=== PATIENT | male | born 1990 | race Caucasian/White ===

== ENCOUNTER 2019-07-29 02:07 | Emergency (ER) | payer SELFPAY ==
--- NOTE | 2019-07-29 02:15 | ED_ITS ---
Entered by Leticia Vora, acting as scribe for HPI - General Adult General: Chief complaint: Fever Stated complaint: GENERAL PAIN/ SOB/ FEVER Time Seen by Provider: 07/29/19 02:13 Source: EMS Mode of arrival: ambulatory Limitations: no limitations History of Present Illness: HPI narrative: Alonso is a nice 29-year-old male who comes in complaining of subjective fever and bone pain. He states the symptoms began earlier tonight. He denies being exposed to anyone else with similar symptoms or with possible exposure of Covid-19. He denies headache, sore throat, cough, shortness of breath, nausea or vomiting, abdominal pain, diarrhea, skin rash or other complaint. He states he just feels like he has a fever and hurts all over. MD complaint: fever and chills Onset (ago): hour(s) Location: head Radiation: non-radiation Severity: mild Pain Consistency: constant Relieving factors: none Exacerbating factors: none Associated symptoms: Reports fevers/chills; Deny chest pain, confusion, dyspnea, headache(s), nausea, rash, palpitations, syncope or vomiting Treatments prior to arrival: none Review of Systems Const: Reports: fever, chills and body aches Eyes: Denies: change in vision or blurry vision ENMT: Denies: throat pain, painful swallowing, hoarseness, ear pain, ear discharge, Change in hearing or nasal discharge Card: Denies: chest pain, palpitations, irregular heart rhythm, syncope, pre- syncope, shortness of breath on exertion or shortness of breath when lying down Resp: Denies: shortness of breath, productive cough, non-productive cough, wheezing, coughing up blood or chest congestion GI: Denies: abdominal pain, nausea, vomiting, vomiting blood, coffee grounds in vomit, diarrhea, constipation, cramping, blood in stool or black tarry stool : Denies: flank pain, difficulty urinating, painful urination, urinary frequency, urinary urgency, decreased urine ouput, urinary incontinence or blood in urine Musc: Denies: neck pain, back pain, extremity pain, extremity swelling, joint pain, joint swelling, joint warmth or joint stiffness Skin/Breast: Denies: rash, skin tenderness or yellow skin Neuro: Denies: headache, numbness in extremities, weakness in extremities, changes in sensation, lack of coordination, difficulty walking, dizziness, vertigo or confusion Endo: Denies: excessive thirst, tired all the time, cold intolerance, excessive sweating, flushing or hot flashes Marco/Lymph: Denies: easy bruising, easy bleeding, petechiae or enlarged lymph nodes All/Imm: Denies: hives, throat swelling, tongue swelling, facial swelling or acute wheezing PFSH ED PFSH: Medical History (Updated 07/29/19 @ 05:32 by Sariah Alba) No pertinent past medical history Social History Smoking and tobacco status: current every day smoker Physical Exam Const: COMMON NORMALS: no apparent distress, oriented x3, no limitations, healthy appearing and well nourished EXAM LIMITATIONS: no altered mental status GENERAL APPEARANCE: cooperative, well kempt and well developed ORIENTATION/CONSCIOUSNESS: Yes awake HENMT: COMMON NORMALS: normocephalic, head/scalp atraumatic, hearing grossly normal bilaterally, external ears normal, EAC's normal, external nose normal and moist oral mucous membranes HEAD & SCALP: normal to inspection, normocephalic and atraumatic FACE & SINUS: normal facial exam and face symmetric NOSE: external nose normal and nares normal EXTERNAL EAR: Yes external ears normal EXTERNAL AUDITORY CANAL: EAC's normal MOUTH: oral and palatal mucosa normal and tongue normal Eye: COMMON NORMALS: PERRL, EOMs intact bilaterally, conjunctivae normal and no scleral icterus GENERAL EYE: normal appearance of both eyes and normal light reflex CONJUNCTIVA: Yes conjunctivae normal SCLERA: sclerae normal CORNEA: Yes corneas normal PUPIL: Yes PERRL DIRECT OPHTHALMOSCOPY: Yes normal light reflex Neck/C-Spine: COMMON NORMALS: full ROM, no lymphadenopathy, supple, no meningeal signs and no JVD GENERAL: Yes normal visual inspection and Yes trachea midline CERVICAL SPINE: Yes cervical ROM normal Chest: COMMONS NORMALS: inspection of chest normal and palpation of chest normal Resp: COMMON NORMALS: normal respiratory effort, no retractions, no use of accessory muscles and clear to auscultation bilaterally EFFORT & INSPECTION: Yes able to speak in complete sentences AUSCULTATION: clear to auscultation bilaterally Cardio: COMMON NORMALS: no JVD, regular rate, regular rhythm, S1 normal heart sound, S2 normal heart sound, no gallops, no clicks, no murmurs and no rub JUGULAR VENOUS DISTENTION: no JVD RATE: regular rate RHYTHM: regular rhythm HEART SOUNDS: S1 normal and S2 normal GI: COMMON NORMALS: soft to palpation, non-tender, no hepatosplenomegaly and no masses INSPECTION: Yes normal to inspection PALPATION: Yes soft and Yes no hepatosplenomegaly : COMMON NORMALS: Yes no CVA tenderness BLADDER/KIDNEY EXAM: Yes no CVA tenderness Back/Pelvis: COMMON NORMALS: no CVA tenderness, thoracic and lumbar spine normal to inspection, no thoracic nor lumbar tenderness and thoraco-lumbar ROM normal Extremity: COMMON NORMALS: normal to inspection, full ROM, normal capillary refill, no joint enlargement, no clubbing, cyanosis or edema and no calf tenderness Neuro: COMMON NORMALS: oriented x3, CN's II-XII intact bilaterally, moves all extremities, no focal motor deficits and no sensory deficits noted MENINGEAL SIGNS: Yes no meningeal signs Psych: COMMON NORMALS: mental status grossly normal, thought process normal, cooperative, affect normal, speech normal and activity/motor behavior normal APPEARANCE: Yes well kempt SPEECH: Yes normal speech THOUGHT PROCESS: normal thought process Skin: COMMON NORMALS: no rashes or lesions noted, skin turgor normal, no jaundice, no petechiae and no mottling GENERAL SKIN EXAM: no rashes or lesions noted and turgor normal Course Vital Signs: Vital signs: Vital Signs Temperature 98.0 F 07/29/19 02:40 Pulse Rate 111 H 07/29/19 02:40 Respiratory Rate 18 07/29/19 02:40 Blood Pressure 150/98 07/29/19 02:40 Pulse Oximetry 99 07/29/19 02:40 MDM - General Adult MDM Narrative: Medical decision making narrative: Alonso is a nice 29-year-old male who comes in complaining of generalized body aches and subjective fever. Objectively he has had no fever here and he denies any antipyretics prior to coming in. I do not see any evidence of track gutierrez or injection drug use. I hear no heart murmurs on exam. There is no splinter hemorrhages, Janeway lesions or Osler's nodes. Patient vomited here but that was when he had a IV placed which he states he has had this reaction before. He is denied any nausea or vomiting, abdominal pain or diarrhea at home. I imaged his abdomen with ultrasound and CT scan when he had an elevated lipase but he still adamant he has no abdominal pain he has had no vomiting or diarrhea at home. He has no history of Crohn's disease or inflammatory bowel disease. He denies any blood in his stools or black tarry stools. On repeat exam he has no evidence of abdominal pain. Clinically at this time I believe a viral syndrome is still most likely but I will cover him for inflammatory bowel disease with Cipro and Flagyl and he agrees to return here in 24 hours for repeat laboratory and physical examination to evaluate for progressing pancreatitis. Neither his CT scan nor his ultrasound showed any evidence of cholecystitis or pancreatitis. The patient understands that his symptoms still do not have a definitive cause and he will need to return for reevaluation. He denies any questions or concerns and agrees with this treatment plan. Lab Data: Attestation: I reviewed the patient's lab results. Labs: Lab Results 07/29/19 07/29/19 07/29/19 Range/Units 02:20 02:20 02:27 WBC 16.6 H (4.0-10.0) 10^3/ uL RBC 4.70 (4.1-5.3) 10^6/u L Hgb 13.9 (11.7-16.6) g/dL Hct 42.6 (42.0-52.0) % MCV 90.6 (80-94) fL MCH 29.6 (28.0-34.0) pg MCHC 32.6 (30.0-36.0) g/dL RDW 13.0 (12.1-15.1) % Plt Count 181 (130-400) 10^3/c mm MPV 12.0 H (7.4-10.4) fL Neut % (Auto) 90.9 % Lymph % (Auto) 4.5 % [place] % (Auto) 3.9 % Eos % (Auto) 0.2 % Baso % (Auto) 0.2 % Neut # (Auto) 15.1 H (1.8-7.7) 10^3/u L Lymph # (Auto) 0.7 L (0.8-4.8) 10^3/u L [place] # (Auto) 0.6 (0.2-0.9) 10^3/u L Eos # (Auto) 0.0 (0.0-0.8) 10^3/u L Baso # (Auto) 0.0 (0.0-0.1) 10^3/u L Nucleated RBC % (a uto) 0 % Nucleated RBCs # 0.0 /100WBC Sodium (136-145) mmol/L Potassium (3.5-5.1) mmol/L Chloride (98-107) mmol/L Carbon Dioxide (22-29) mmol/L Anion Gap (5-19) BUN (6-20) mg/dL Creatinine (0.7-1.2) mg/dL GFR Calculation (90-130) mL/min Glucose (65-115) mg/dL Calculated Osmolal ity (285-295) mOsm/k g Lactic Acid (0.5-2.2) mmol/L Calcium (8.5-10.5) mg/dL Magnesium (1.7-2.3) mg/dL Total Bilirubin (0.15-1.2) mg/dL AST (0-40) U/L ALT (0-41) U/L Alkaline Phosphata se (40-130) IU/L Total Protein (6.6-8.7) g/dL Albumin (3.5-5.2) g/dL Globulin (1.3-4.6) g/dL Lipase (13-60) U/L Urine Color (Yellow) Urine Appearance (CLEAR) Urine pH (5-7) Ur Specific Gravit y (1.005-1.030) Urine Protein (Negative) Urine Glucose (UA) (Normal) Urine Ketones (Negative) Urine Blood (Negative) Urine Nitrate (Negative) Urine Bilirubin (NEGATIVE) Urine Urobilinogen (Negative) mg/dL Ur Leukocyte Martha ase (Negative) Urine RBC (0-2) /hpf Urine WBC (0-5) /hpf Ur Squamous Epith Cells (0-5) Urine Bacteria (NONE) Urine Opiates Scre en (Negative) ng/mL Ur Barbiturates Sc reen (Negative) ng/mL Ur Phencyclidine S crn (Negative) ng/mL Ur Amphetamines Sc reen (Negative) ng/mL U Benzodiazepines Scrn (Negative) ng/mL Urine Cocaine Scre en (Negative) ng/mL U Marijuana (THC) Screen (Negative) ng/mL Ethyl Alcohol (0-10) mg/dL Influenza Type A A g Negative (Negative) POC Influenza B Ag Negative (Negative) Group A Strep Rapi d Negative (Negative) 07/29/19 07/29/19 07/29/19 Range/Units 02:27 02:27 02:27 WBC (4.0-10.0) 10^3/ uL RBC (4.1-5.3) 10^6/u L Hgb (11.7-16.6) g/dL Hct (42.0-52.0) % MCV (80-94) fL MCH (28.0-34.0) pg MCHC (30.0-36.0) g/dL RDW (12.1-15.1) % Plt Count (130-400) 10^3/c mm MPV (7.4-10.4) fL Neut % (Auto) % Lymph % (Auto) % [place] % (Auto) % Eos % (Auto) % Baso % (Auto) % Neut # (Auto) (1.8-7.7) 10^3/u L Lymph # (Auto) (0.8-4.8) 10^3/u L [place] # (Auto) (0.2-0.9) 10^3/u L Eos # (Auto) (0.0-0.8) 10^3/u L Baso # (Auto) (0.0-0.1) 10^3/u L Nucleated RBC % (a uto) % Nucleated RBCs # /100WBC Sodium 136 (136-145) mmol/L Potassium 4.1 (3.5-5.1) mmol/L Chloride 100 (98-107) mmol/L Carbon Dioxide 24 (22-29) mmol/L Anion Gap 16.1 (5-19) BUN 22 H (6-20) mg/dL Creatinine 1.0 (0.7-1.2) mg/dL GFR Calculation 87.7 L (90-130) mL/min Glucose 123 H (65-115) mg/dL Calculated Osmolal ity 280 L (285-295) mOsm/k g Lactic Acid 1.4 (0.5-2.2) mmol/L Calcium 9.8 (8.5-10.5) mg/dL Magnesium 2.2 (1.7-2.3) mg/dL Total Bilirubin 0.4 (0.15-1.2) mg/dL AST 18 (0-40) U/L ALT 24 (0-41) U/L Alkaline Phosphata se 71 (40-130) IU/L Total Protein 7.5 (6.6-8.7) g/dL Albumin 4.6 (3.5-5.2) g/dL Globulin 2.9 (1.3-4.6) g/dL Lipase 441 H (13-60) U/L Urine Color (Yellow) Urine Appearance (CLEAR) Urine pH (5-7) Ur Specific Gravit y (1.005-1.030) Urine Protein (Negative) Urine Glucose (UA) (Normal) Urine Ketones (Negative) Urine Blood (Negative) Urine Nitrate (Negative) Urine Bilirubin (NEGATIVE) Urine Urobilinogen (Negative) mg/dL Ur Leukocyte Martha ase (Negative) Urine RBC (0-2) /hpf Urine WBC (0-5) /hpf Ur Squamous Epith Cells (0-5) Urine Bacteria (NONE) Urine Opiates Scre en (Negative) ng/mL Ur Barbiturates Sc reen (Negative) ng/mL Ur Phencyclidine S crn (Negative) ng/mL Ur Amphetamines Sc reen (Negative) ng/mL U Benzodiazepines Scrn (Negative) ng/mL Urine Cocaine Scre en (Negative) ng/mL U Marijuana (THC) Screen (Negative) ng/mL Ethyl Alcohol < 10 (0-10) mg/dL Influenza Type A A g (Negative) POC Influenza B Ag (Negative) Group A Strep Rapi d (Negative) 07/29/19 07/29/19 Range/Units 03:15 03:15 WBC (4.0-10.0) 10^3/ uL RBC (4.1-5.3) 10^6/u L Hgb (11.7-16.6) g/dL Hct (42.0-52.0) % MCV (80-94) fL MCH (28.0-34.0) pg MCHC (30.0-36.0) g/dL RDW (12.1-15.1) % Plt Count (130-400) 10^3/c mm MPV (7.4-10.4) fL Neut % (Auto) % Lymph % (Auto) % [place] % (Auto) % Eos % (Auto) % Baso % (Auto) % Neut # (Auto) (1.8-7.7) 10^3/u L Lymph # (Auto) (0.8-4.8) 10^3/u L [place] # (Auto) (0.2-0.9) 10^3/u L Eos # (Auto) (0.0-0.8) 10^3/u L Baso # (Auto) (0.0-0.1) 10^3/u L Nucleated RBC % (a uto) % Nucleated RBCs # /100WBC Sodium (136-145) mmol/L Potassium (3.5-5.1) mmol/L Chloride (98-107) mmol/L Carbon Dioxide (22-29) mmol/L Anion Gap (5-19) BUN (6-20) mg/dL Creatinine (0.7-1.2) mg/dL GFR Calculation (90-130) mL/min Glucose (65-115) mg/dL Calculated Osmolal ity (285-295) mOsm/k g Lactic Acid (0.5-2.2) mmol/L Calcium (8.5-10.5) mg/dL Magnesium (1.7-2.3) mg/dL Total Bilirubin (0.15-1.2) mg/dL AST (0-40) U/L ALT (0-41) U/L Alkaline Phosphata se (40-130) IU/L Total Protein (6.6-8.7) g/dL Albumin (3.5-5.2) g/dL Globulin (1.3-4.6) g/dL Lipase (13-60) U/L Urine Color Yellow (Yellow) Urine Appearance Clear (CLEAR) Urine pH 7 (5-7) Ur Specific Gravit y 1.005 (1.005-1.030) Urine Protein Neg (Negative) Urine Glucose (UA) Norm (Normal) Urine Ketones Negative (Negative) Urine Blood Neg (Negative) Urine Nitrate Negative (Negative) Urine Bilirubin Neg (NEGATIVE) Urine Urobilinogen Norm (Negative) mg/dL Ur Leukocyte Martha ase Negative (Negative) Urine RBC Rare (0-2) /hpf Urine WBC Rare (0-5) /hpf Ur Squamous Epith Cells Rare (0-5) Urine Bacteria Trace (NONE) Urine Opiates Scre en Negative (Negative) ng/mL Ur Barbiturates Sc reen Negative (Negative) ng/mL Ur Phencyclidine S crn Negative (Negative) ng/mL Ur Amphetamines Sc reen Negative (Negative) ng/mL U Benzodiazepines Scrn Negative (Negative) ng/mL Urine Cocaine Scre en Negative (Negative) ng/mL U Marijuana (THC) Screen Positive H (Negative) ng/mL Ethyl Alcohol (0-10) mg/dL Influenza Type A A g (Negative) POC Influenza B Ag (Negative) Group A Strep Rapi d (Negative) Imaging Data^: CT Abd/Pel: Radiologist's impression: [address] [address] [address] Scan Report Signed Patient: Alonso Duque Unit #: [id number] : 1990 Age/Sex: 29 / M ADM Date: 07/29/19 Loc: ER Room/Bed: Attending Dr: Ordering Provider/Ordering MD: Sariah Alba DO Date of Service: 07/29/19 Procedure(s): CT abdomen pelvis w con* [id number] Accession Number(s): [id number] Report Number: [id number] PROCEDURE INFORMATION: Exam: CT Abdomen And Pelvis With Contrast Exam date and time: 07/29/2019 3:55 AM Age: 29 years old Clinical indication: Abnormal findings; Abnormal lab test; Elevated lipase; Additional info: Abdominal pain TECHNIQUE: Imaging protocol: Computed tomography of the abdomen and pelvis with intravenous contrast. Total DLP: 683.02 mGy-cm Radiation optimization: All CT scans at this facility use at least one of these dose optimization techniques: automated exposure control; mA and/or kV adjustment per patient size (includes targeted exams where dose is matched to clinical indication); or iterative reconstruction. Contrast material: OMNI 300; Contrast volume: 95 ml; Contrast route: IV; COMPARISON: No relevant prior studies available. FINDINGS: Lungs: The lung bases are clear. Liver: Unremarkable. Gallbladder and bile ducts: No visible gallstones or other definite gallbladder abnormality by CT. Ultrasound could be more sensitive for detecting gallstones, if clinically needed. No biliary tree dilation. Pancreas: Essentially unremarkable pancreas by CT, no surrounding inflammatory changes or fluid. Normal appearance of the pancreas on CT does not entirely exclude the diagnosis of acute pancreatitis. Please correlate with clinical and laboratory evaluation. Spleen: Unremarkable. Adrenals: Unremarkable. Kidneys and ureters: Unremarkable. Stomach and bowel: Suspect mild mucosal/wall thickening involving the terminal ileum and some distal ileal small bowel loops. While this might possibly be a transient appearance on CT, this appearance is suspicious for some type of inflammatory bowel disease,(especially Crohn's disease), or other inflammatory bowel process/enteritis. Please correlate clinically. Possibly some minimal adjacent mesenteric edema/inflammation. There are no CT findings to strongly suggest diverticulitis. Appendix: The appendix is visualized and appears normal. Intraperitoneal space: No free air, ascites, or significant bowel distention. Vasculature: No evidence for abdominal aortic aneurysm. Lymph nodes: Several borderline to mildly prominent inguinal lymph nodes bilaterally. Several borderline prominent retroperitoneal/periaortic lymph nodes, a nonspecific appearance. Bladder: Unremarkable as visualized. Reproductive: Essentially unremarkable for age. Bones/joints: No significant acute finding. Soft tissues: No significant acute finding. CT/CT abdomen pelvis w con* [id number] IMPRESSION: 1. Suspected mucosal/wall thickening involving the terminal/distal ileum, see above discussion. 2. No free air or significant bowel distention. 3. Essentially unremarkable pancreas by CT, see above. 4. Normal appendix. 5. Other findings discussed above. Radiation Dose CTDIVOL = (mGy): DLP = 683.02 (mGy-cm) Dictated By: Kaleb Vanessa MD Signed By: Kaleb Vanessa MD Signed Date/Time: 07/29/19429 DD/ 7 US: Radiologist's impression: Ultrasound abdomen, technologist interpretation - gallbladder normal. No other acute findings. Discharge Plan Discharge Patient Disposition: Home, Self-Care Clinical Impression: Viral infection, Enteritis Acute pancreatitis Qualifiers: Pancreatitis type: unspecified pancreatitis type Acute pancreatitis complication: unspecified Qualified Code(s): K85.90 - Acute pancreatitis without necrosis or infection, unspecified Condition: Stable Prescriptions: New Zofran 4 mg tablet 4 mg PO Q6H PRN (Reason: nausea and vomiting) Qty: 20 RF: 0 Flagyl 500 mg tablet 500 mg PO TID 10 Days Qty: 30 RF: 0 Cipro 500 mg tablet 500 mg PO BID Qty: 20 RF: 0 Referrals: Binu Olvera MD [Physician] - 1-3 days Discharge Diet: Advance as tolerated and Clear Liquid Discharge Activity: Increase activity as tolerated Patient Instructions: Pancreatitis (ED), Crohn Disease (ED), Gastroenteritis (ED), Acute Nausea and Vomiting (ED), Viral Syndrome (ED) Activity Restrictions/Additional Instructions: Please return to the ER immediately for any of the signs or symptoms listed on your discharge instruction sheets, worsening/changing of your symptoms, you are not getting better as quickly as expected, or for ANY other cause or concerns. Be certain to take your antibiotics and nausea medicines as I have prescribed. A clear cause for your symptoms is not definite at this time so it is imperative that you return in 24 hours for recheck. Follow a clear liquid diet but take the medicines I have prescribed and Tylenol and Motrin as needed for pain or fever. Return sooner for any worsening of your symptoms, new symptoms or for any other cause for concern. Coding Level of Care Code ED Cereal Miller for Chg Fwd Exam Comprehensive The documentation recorded by the Diony rousseau Bridget Annette, accurately reflects the service I personally performed and the decisions made by Anjali cabrera Eli N Jul 29, 2019 02:07
--- NOTE | 2019-07-29 02:16 | XR_ITS ---
WS: [id number] XR chest 1V portable [id number] REASON FOR EXAM: cough FINDINGS: The heart and mediastinal interfaces normal. The lung baker are well aerated. No pneumonia, pleural effusion, pulmonary edema, pneumothorax, or m ass effect. The hilum and apices are normal XR/XR chest 1V portable [id number] IMPRESSION: Negative chest for acute pathology.
[2019-07-29 02:35] LABS: Rapid Strep A Test Negative (Negative)
[2019-07-29 02:36] LABS: Basophils % 0.2 %; Eosinophils % 0.2 %; Hematocrit 42.6 % (42.0-52.0); Hemoglobin 13.9 g/dL (11.7-16.6); Lymphocytes # 0.7 10^3/uL (0.8-4.8); Lymphocytes % 4.5 %; Mean Corpuscular HGB Conc 32.6 g/dL (30.0-36.0); Mean Corpuscular Hemoglobin 29.6 pg (28.0-34.0); Mean Corpuscular Volume 90.6 fL (80-94); Monocytes # 0.6 10^3/uL (0.2-0.9); Monocytes % 3.9 %; Neutrophils # 15.1 10^3/uL (1.8-7.7); Neutrophils % 90.9 %; Nucleated Red Blood Cells % 0 %; Platelet Count 181 10^3/cmm (130-400); White Blood Count 16.6 10^3/uL (4.0-10.0)
[2019-07-29 02:40] VITALS: BP 150/98; PULSE 111; RESP 18; TEMP 36.7; O2SAT 99; BMI 25.0
[2019-07-29 02:49] LABS: Influenza A by IFA Negative (Negative); Influenza B by IFA Negative (Negative)
[2019-07-29 02:53] LABS: Alanine Aminotransferase 24 U/L (0-41); Albumin Level 4.6 g/dL (3.5-5.2); Alkaline Phosphatase 71 IU/L (40-130); Anion Gap 16.1 (5-19); Aspartate Amino Transferase 18 U/L (0-40); Blood Urea Nitrogen 22 mg/dL (6-20); Calcium 9.8 mg/dL (8.5-10.5); Carbon Dioxide 24 mmol/L (22-29); Chloride 100 mmol/L (98-107); Globulin 2.9 g/dL (1.3-4.6); Glomerular Filtration Rate 87.7 mL/min (90-130); Glucose 123 mg/dL (65-115); Magnesium 2.2 mg/dL (1.7-2.3); Osmolality Calculated 280 mOsm/kg (285-295); Potassium 4.1 mmol/L (3.5-5.1); Sodium 136 mmol/L (136-145); Total Bilirubin 0.4 mg/dL (0.15-1.2); Total Protein 7.5 g/dL (6.6-8.7)
[2019-07-29 02:54] LABS: Lactic Sepsis W/Reflex 1.4 mmol/L (0.5-2.2)
[2019-07-29] MEDS: sodium chloride 0.9% 1,000 ML 999 ML IV (03:09)
[2019-07-29 03:11] LABS: Lipase 441 U/L (13-60)
[2019-07-29 03:20] VITALS: BP 132/82; PULSE 98; RESP 16; O2SAT 98
--- NOTE | 2019-07-29 03:35 | CTR_ITS ---
PROCEDURE INFORMATION: Exam: CT Abdomen And Pelvis With Contrast Exam date and time: 07/29/2019 3:55 AM Age: 29 years old Clinical indication: Abnormal findings; Abnormal lab test; Elevated lipase; Additional info: Abdominal pain TECHNIQUE: Imaging protocol: Computed tomography of the abdomen and pelvis with intravenous contrast. Total DLP: 683.02 mGy-cm Radiation optimization: All CT scans at this facility use at least one of these dose optimization techniques: automated exposure control; mA and/or kV adjustment per patient size (includes targeted exams where dose is matched to clinical indication); or iterative reconstruction. Contrast material: OMNI 300; Contrast volume: 95 ml; Contrast route: IV; COMPARISON: No relevant prior studies available. FINDINGS: Lungs: The lung bases are clear. Liver: Unremarkable. Gallbladder and bile ducts: No visible gallstones or other definite gallbladder abnormality by CT. Ultrasound could be more sensitive for detecting gallstones, if clinically needed. No biliary tree dilation. Pancreas: Essentially unremarkable pancreas by CT, no surrounding inflammatory changes or fluid. Normal appearance of the pancreas on CT does not entirely exclude the diagnosis of acute pancreatitis. Please correlate with clinical and laboratory evaluation. Spleen: Unremarkable. Adrenals: Unremarkable. Kidneys and ureters: Unremarkable. Stomach and bowel: Suspect mild mucosal/wall thickening involving the terminal ileum and some distal ileal small bowel loops. While this might possibly be a transient appearance on CT, this appearance is suspicious for some type of inflammatory bowel disease,(especially Crohn's disease), or other inflammatory bowel process/enteritis. Please correlate clinically. Possibly some minimal adjacent mesenteric edema/inflammation. There are no CT findings to strongly suggest diverticulitis. Appendix: The appendix is visualized and appears normal. Intraperitoneal space: No free air, ascites, or significant bowel distention. Vasculature: No evidence for abdominal aortic aneurysm. Lymph nodes: Several borderline to mildly prominent inguinal lymph nodes bilaterally. Several borderline prominent retroperitoneal/periaortic lymph nodes, a nonspecific appearance. Bladder: Unremarkable as visualized. Reproductive: Essentially unremarkable for age. Bones/joints: No significant acute finding. Soft tissues: No significant acute finding. CT/CT abdomen pelvis w con* [id number] IMPRESSION: 1. Suspected mucosal/wall thickening involving the terminal/distal ileum, see above discussion. 2. No free air or significant bowel distention. 3. Essentially unremarkable pancreas by CT, see above. 4. Normal appendix. 5. Other findings discussed above. Radiation Dose CTDIVOL = (mGy): DLP = 683.02 (mGy-cm)
[2019-07-29 03:45] LABS: Amphetamines Screen Urine Negative (Negative); Barbiturates Screen Urine Negative (Negative); Benzodiazepines Screen Urine Negative (Negative); Cocaine Screen Urine Negative (Negative); Opiate Screen Urine Negative (Negative); PCP Screen Urine Negative (Negative); THC Screen Urine Positive (Negative)
[2019-07-29] MEDS: sodium chloride 0.9% 1,000 ML 100 ML IV (03:46)
[2019-07-29] MEDS: ondansetron 2 mg/ML SDV 2 mL 4 MG IVP (03:46)
[2019-07-29 03:49] LABS: Urine Appearance Clear (CLEAR); Urine Color Yellow (Yellow); pH Urine 7 (5-7)
[2019-07-29 03:50] LABS: Bacteria Urine TRACE; Bilirubin Urine Neg (NEGATIVE); Blood Urine Neg (Negative); Glucose Urine UA Norm (Normal); Ketones Urine Negative (Negative); Leukocyte Esterase Urine Negative (Negative); Nitrate Urine Negative (Negative); Protein Urine Neg (Negative); RBC Urine RARE /hpf (0-2); Specific Gravity, Urine 1.005 (1.005-1.030); Squamous Epithelial Cell Urine RARE (0-5); Urobilinogen Urine Norm (Negative); WBC Urine RARE /hpf (0-5)
[2019-07-29] MEDS: iohexol 300 mg/mL 100 mL Btl IV (03:58)
--- NOTE | 2019-07-29 04:14 | US_ITS ---
WS: [id number] ABDOMINAL ULTRASOUND REASON FOR EXAM: Abdominal Pain TECHNIQUE: Grayscale and Doppler ultrasound examination of the abdomen. FINDINGS: Pancreas: Appears within normal limits. Abdominal aorta and IVC: Normal limits Liver: Liver measures 12.9 cm in length. The pattern of portal circulation normal. Gallbladder: Gallbladder wall thickness measures 0.2 cm. No stones. Common bile duct measured 0.31 cm . Left kidney: Left kidney measures 10.0 cm x 5.1 cm x 4.9 cm. . No hydronephrosis no stones Right kidney: Right kidney measures 10.2 cm x 5.1 cm x 5.0 cm. No hydronephrosis no stones. US/US abdomen complete* [id number] IMPRESSION: Normal abdominal survey by ultrasound.
[2019-07-29 05:17] LABS: Alcohol Level < 10 mg/dL (0-10)
[2019-07-29 05:20] VITALS: BP 132/77; PULSE 102; RESP 20; O2SAT 98
[2019-07-29] MEDS: metroNIDAZOLE 500 MG Tablet PO (05:32)
[2019-07-29] MEDS: ciprofloxacin 500 mg Tablet PO (05:32)
[2019-07-29 06:46] VITALS: BP 124/70; PULSE 102; RESP 18; O2SAT 96
== END 2019-07-29 06:49 | disposition home or self-care (01) ==
PROVIDERS: Emergency Provider Emergency Medicine
DX: B34.9 Viral infection, unspecified (principal); K52.9 Noninfective gastroenteritis and colitis, unspecified; F17.200 Nicotine dependence, unspecified, uncomplicated
CPT/HCPCS: 12345; 71045; 74177; 76700; 80053; 80306; 80307; 81001; 83605; 83690; 83735; 85025; 87040; 87081; 87804; 87880; 96361; 96374; 99283; 99284; A9270; J2405; J7030; Q9967

== ENCOUNTER 2022-10-16 20:06 | Emergency (ER) | payer SELFPAY ==
[2022-10-16 20:20] VITALS: BP 133/80; PULSE 86; RESP 17; TEMP 36.4; O2SAT 94
--- NOTE | 2022-10-16 20:55 | XRR_ITS ---
PROCEDURE INFORMATION: Exam: XR Chest Exam date and time: 10/16/2022 9:18 PM Age: 32 years old Clinical indication: Cough TECHNIQUE: Imaging protocol: Radiologic exam of the chest. Views: 1 view. COMPARISON: CR XR chest 1V portable [id number] 07/29/2019 3:10 AM FINDINGS: Lungs: The lung bases are suboptimally assessed due to technique however the upper lungs are clear of focal consolidation. Pleural spaces: Unremarkable. No pleural effusion. No pneumothorax. Heart/Mediastinum: Cardiac silhouette appears normal in size. No obvious vascular congestion. Diaphragm: Slightly elevated right hemidiaphragm, unchanged. Bones/joints: No acute osseous findings. Other findings: Single view was submitted. XR/XR chest 1V portable [id number] IMPRESSION: No obvious acute consolidation. Suboptimal lung base assessment. Followup including lateral view may be obtained if clinically indicated.
--- NOTE | 2022-10-16 21:15 | W.ED.URI ---
HPI - URI/Sore Throat General: Chief Complaint: Upper Respiratory Infection Stated Complaint: Sore Throat\Coughing Up Blood Time Seen by Provider: 10/16/22 20:24 History of Present Illness: Patient is a 32-year-old male who comes to the ED with sore throat. Patient says symptoms started approximately 2 to 3 weeks ago. He says his sore throat was more mild and yesterday his sore throat got more painful. Throat pain is located mostly on the right side and he says the pain radiates up into his right ear. He also endorses having some right ear pain. He has had some mild nasal drainage and congestion as well. Today he said he was smoking a cigarette and he started coughing and just a small amount of blood came out. This episode only occurred once today. He has not had any other episodes of bloody cough. 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 Associated symptoms: Reports nasal congestion; Deny abdominal pain, chills, chest pain, diarrhea, fever(s), headache(s), nausea or vomiting Review of Systems Const: Denies: fever(s), chills or fatigue Eyes: Denies: change in vision or eye discomfort ENMT: Reports: throat pain, odynophagia, nasal discharge and nasal congestion Card: Denies: chest pain, palpitations, edema, swelling of feet/ankles, dyspnea on exertion or orthopnea Resp: Denies: dyspnea, productive cough or non-productive cough GI: Denies: abdominal pain, nausea, vomiting, diarrhea, constipation or hematochezia : Denies: flank pain, difficulty urinating, dysuria or hematuria Musc: Denies: neck pain, back pain or extremity swelling Skin/Breast: Denies: rash or new lesions Neuro: Denies: headache(s), numbness in extremities or weakness in extremities [facility] ED PFSH: Medical History (Updated 10/16/22 @ 21:57 by GERMANIA Coughlin) No pertinent past medical history Surgical History (Updated 10/17/22 @ 00:27 by GERMANIA Coughlin) No pertinent past surgical history Social History Smoking and tobacco status: current every day smoker Physical Exam Const: COMMON NORMALS: no acute distress, patient oriented x3, healthy appearing and alert HENMT: COMMON NORMALS: normocephalic HEAD & SCALP: normocephalic MOUTH: Normal oral and palatal mucosa present THROAT: posterior oropharynx normal and uvula midline Neck/C-Spine: COMMON NORMALS: supple GENERAL: Yes normal visual inspection Resp: COMMON NORMALS: normal respiratory effort, No retractions, No use of accessory muscles and clear to auscultation bilaterally AUSCULTATION: clear to auscultation bilaterally Cardio: COMMON NORMALS: regular rate, regular rhythm, S1 normal heart sound present, S2 normal heart sound present, No gallops present (Cardio), No clicks present (Cardio), No murmurs present (Cardio) and Peripheral pulses 2+ throughout RATE: regular rate RHYTHM: regular rhythm HEART SOUNDS: S1 normal heart sound present and S2 normal heart sound present PERIPHERAL PULSES: Peripheral pulses 2+ throughout GI: COMMON NORMALS: Normal to inspection, nondistended, normoactive bowel sounds present, Soft to palpation, non-tender and no masses PALPATION: Yes Soft to palpation : COMMON NORMALS: Yes no CVA tenderness BLADDER/KIDNEY EXAM: Yes no CVA tenderness Back/Pelvis: COMMON NORMALS: no CVA tenderness Extremity: COMMON NORMALS: normal to inspection Neuro: COMMON NORMALS: patient oriented x3 SENSORIUM/ORIENTATION: Yes alert GAIT: Yes Normal gait present Skin: GENERAL SKIN EXAM: dry skin Course Vital Signs: Vital signs: Vital Signs Temperature 97.6 F 10/16/22 20:20 Pulse Rate 78 10/16/22 22:04 Respiratory Rate 16 10/16/22 22:04 Blood Pressure 133/80 10/16/22 20:20 Pulse Oximetry 99 10/16/22 22:04 Oxygen Delivery Me thod Room Air 10/16/22 20:20 MDM - URI/Sore Throat Medical Decision Making Patient is a 32-year-old male who comes to the ED with sore throat. Patient says symptoms started approximately 2 to 3 weeks ago. He says his sore throat was more mild and yesterday his sore throat got more painful. Throat pain is located mostly on the right side and he says the pain radiates up into his right ear. He also endorses having some right ear pain. He has had some mild nasal drainage and congestion as well. Today he said he was smoking a cigarette and he started coughing and just a small amount of blood came out. This episode only occurred once today. He has not had any other episodes of bloody cough. 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 Vitals are stable. Patient appears nontoxic in no acute distress or pain. He has some posterior oropharynx erythema but rest of exam is benign. Chest x-ray shows no acute findings. Strep was negative. Given patient's close contact with somebody who had strep patient was diagnosed with pharyngitis and was discharged home with a prescription for an antibiotic. Told to follow-up with PCP in the next week for reevaluation. Return to ED precautions given. Patient understood and agreed with plan. Lab Data I reviewed the patient's lab results. Radiology Impressions Chest X-Ray 10/16/22 20:55 IMPRESSION: No obvious acute consolidation. Suboptimal lung base assessment. Followup including lateral view may be obtained if clinically indicated. Laboratory Results Group A Strep Rapid Negative (Negative) 10/16/22 20:36 Discharge Plan Discharge Patient Disposition: Home Clinical Impression: Pharyngitis Qualifiers: Pharyngitis/tonsillitis etiology: unspecified etiology Qualified Code(s): J02.9 - Acute pharyngitis, unspecified Condition: Stable Prescriptions: New Augmentin 500-125 mg tablet 1 tab PO BID 10 Days Qty: 20 0RF No Action Zofran 4 mg tablet 4 mg PO Q6H PRN (Reason: nausea and vomiting) Qty: 20 0RF Cipro 500 mg tablet 500 mg PO BID Qty: 20 0RF Discharge Orders: Discharge ED (Routine); Ordered 10/16/22 Ordered By: Scott Corona Discharge Diet: Regular Discharge Activity: Increase activity as tolerated Patient Instructions: Pharyngitis (ED) Activity Restrictions/Additional Instructions: Follow-up with medical provider as directed. Take medications as prescribed. Return to the ER or your medical provider if condition worsens. Please read and understand discharge instructions. Thank you for choosing [facility] for your healthcare needs today. Please realize this is an emergency room and that we are providing you with a medical screening exam and this may not be complete and all inclusive of all the testing and or work up that you may need to determine your ailment or severity of your illness. It is very important that you follow up as instructed or that you return to the Emergency Department should you have concerns or if your condition changes or worsens in any way. 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
[2022-10-16 21:25] LABS: Rapid Strep A Test Negative (Negative)
[2022-10-16] MEDS: amoxicillin-clav 500-125 mg Tablet 1 TAB PO (22:03)
[2022-10-16 22:04] VITALS: PULSE 78; RESP 16; O2SAT 99
--- NOTE | 2022-10-20 13:30 | DCPLANNER ---
manager of administration called patient due to no primary care physician - no answer at this time.
== END 2022-10-16 22:04 | disposition home or self-care (01) ==
PROVIDERS: Emergency Provider Physician Assistant
DX: J02.9 Acute pharyngitis, unspecified (principal); F17.210 Nicotine dependence, cigarettes, uncomplicated
CPT/HCPCS: 71045; 87081; 87880; 99283

== ENCOUNTER 2023-09-22 17:26 | Inpatient (IN) | payer BC, SELFPAY ==
[2023-09-22] VITALS (8 sets, daily range): BP systolic 102–132; BP diastolic 61–91; PULSE 82–105; RESP 16–18; TEMP 36.6–36.9; O2SAT 92–95
--- NOTE | 2023-09-22 17:55 | CTR_ITS ---
PROCEDURE INFORMATION: Exam: CT Abdomen And Pelvis With Contrast Exam date and time: 09/22/2023 6:12 PM Age: 33 years old Clinical indication: Abdominal pain; Localized; Patient HX: History--lower abd pain with squezzing of testicles feeling ; Additional info: Abd pain, right side TECHNIQUE: Imaging protocol: Computed tomography of the abdomen and pelvis with contrast. Radiation optimization: All CT scans at this facility use at least one of these dose optimization techniques: automated exposure control; mA and/or kV adjustment per patient size (includes targeted exams where dose is matched to clinical indication); or iterative reconstruction. Contrast material: OMNI 350; Contrast volume: 100 ml; Contrast route: INTRAVENOUS (IV); COMPARISON: CT abdomen pelvis w con* [id number] 07/29/2019 3:55 AM RADIATION DOSE METRICS: Total DLP (mGy-cm): 1123 FINDINGS: Lungs: The lung bases are clear. Heart: Heart size is within normal limits. There is no pericardial effusion or pericardial thickening. Liver: The liver is normal. No hepatic masses are identified. Gallbladder and bile ducts: The gallbladder is normal. There is no ductal dilatation. Pancreas: The pancreas is normal. Spleen: The spleen is normal. Adrenal glands: The adrenal glands are normal. Kidneys and ureters: There is normal enhancement of the kidneys. No renal calcifications are identified. There is no hydronephrosis. Stomach and bowel: Moderate colonic diverticula involving the sigmoid and descending colon. Moderate thickening of the mid sigmoid colon with [id number] adjacent inflammatory changes and multiple extraluminal foci of gas contained within the mesentery. No free gas in the upper abdomen. Trace adjacent fluid without drainable fluid collection. No other areas of inflammatory change. No fluid collections. No other areas of bowel wall thickening. No evidence of large or small bowel obstruction. Appendix: A normal appendix is identified. Intraperitoneal space: See Stomach and bowel finding. Vasculature: The aorta is normal in course and caliber. No significant atherosclerotic calcifications are present. Incidental note is made of a retroaortic left renal vein. Lymph nodes: There are no enlarged retroperitoneal or mesenteric lymph nodes. Urinary bladder: The bladder is decompressed and collapsed. No abnormality identified. Reproductive: The prostate is grossly unremarkable. Bones/joints: Several nonaggressive sclerotic foci within the pelvis, stable compared to 2019, likely bone islands. No acute osseous abnormalities are seen. Soft tissues: There is a moderate periumbilical hernia containing only fat. There is a small left inguinal hernia containing only fat. The soft tissues are otherwise within normal limits. CT/CT abdomen pelvis w con* [id number] IMPRESSION: 1. Acute diverticulitis of the mid sigmoid colon with extraluminal mesenteric gas consistent with contained perforation. No free intraperitoneal gas, no drainable fluid collection. 2. Other nonemergent findings above.
--- NOTE | 2023-09-22 17:56 | ED_ITS ---
Documented by User: GUILLERMO Melara 09/22/23 19:51 HPI - Abdominal Pain 2 General: Chief Complaint: Abdominal Pain Stated Complaint: abd pain, testicle pain Time Seen by Provider: 09/22/23 17:48 History of Present Illness: 33-year-old male patient comes in today for complaints of right mid to lower quadrant abdominal pain starting about 1:00 this afternoon with nausea and vomiting. Patient appears nontoxic. Patient denies any chronic medical problems except for hip ankle and back pain. Patient does endorse use of tobacco, and marijuana. Patient denies methamphetamines or alcohol. Patient's had no surgeries. Patient works at [employer]. Review of Systems 2 General: Reports: 10 or more systems reviewed and unremarkable except in HPI and below GI: Reports: abdominal pain PFSH ED 2 PFSH: Medical History (Updated 09/22/23 @ 18:47 by GUILLERMO Melara) No pertinent past medical history Surgical History (Updated 10/17/22 @ 00:27 by GERMANIA Coughlin) No pertinent past surgical history Social History Smoking and tobacco/nicotine status: current every day tobacco/nicotine user Physical Exam 2 Const: COMMON NORMALS: alert HENMT: COMMON NORMALS: normocephalic HEAD & SCALP: normocephalic Neck/C-Spine: COMMON NORMALS: full ROM Resp: COMMON NORMALS: normal respiratory effort and clear to auscultation bilaterally AUSCULTATION: clear to auscultation bilaterally Cardio: COMMON NORMALS: regular rate RATE: regular rate GI: AUSCULTATION: Yes Hypoactive bowel sounds present PALPATION: Yes Tenderness to palpation present (GI) Details: RLQ, No Guarding due to palpation present (GI) and Yes Rebound tenderness present : COMMON NORMALS: Yes no CVA tenderness BLADDER/KIDNEY EXAM: Yes no CVA tenderness Back/Pelvis: COMMON NORMALS: no CVA tenderness Extremity: COMMON NORMALS: normal to inspection Neuro: SENSORIUM/ORIENTATION: Yes alert Skin: COMMON NORMALS: turgor normal GENERAL SKIN EXAM: turgor normal Course 2 Vital Signs: Vital signs: Vital Signs Temperature 98.5 F 09/22/23 17:33 Pulse Rate 103 H 09/22/23 20:14 Respiratory Rate 16 09/22/23 17:33 Blood Pressure 132/91 09/22/23 20:14 Pulse Oximetry 94 09/22/23 20:14 Oxygen Delivery Me thod Room Air 09/22/23 17:33 MDM - Abdominal Pain Medical Decision Making 33-year-old male patient comes in today for complaints of right lower quadrant abdominal pain with nausea and vomiting starting about 1:00 this afternoon. Patient appears mildly unwell but nontoxic. Abdomen soft with rebound tenderness and right lower quadrant abdominal tenderness. Vital signs are normal except for some mild elevation in pulse at 104. Differential diagnosis includes but not limited to gastroenteritis, constipation, gallbladder disease, pancreatitis, appendicitis, renal calculi. 1844, notified by Dr. Amado, radiologist, patient was noted to have diverticulitis with a mid sigmoid colon with extraluminal mesenteric gas suggesting a contained perforation without signs of intraperitoneal gas or abscess. Discussed this with Dr. Parham who recommended patient be admitted. Patient was given a 4.5 g dose of Zosyn. Patient was started on IV fluids. Discussed with patient who agreed to plan for admission. 1934, consulted Dr. Rob, surgeon on-call, he agreed to consult with hospitalist as needed for possible surgery recommending Zosyn and keeping patient n.p.o. Dr. Negron accepted patient for hospitalist services. Lab Data 09/22/23 17:51 09/22/23 17:51 Labs/Radiology: Radiology Impressions Abdomen/Pelvis CT 09/22/23 17:55 IMPRESSION: 1. Acute diverticulitis of the mid sigmoid colon with extraluminal mesenteric gas consistent with contained perforation. No free intraperitoneal gas, no drainable fluid collection. 2. Other nonemergent findings above. ADDENDUM: 09/22/23 1836 ADDENDUM: THIS REPORT CONTAINS FINDINGS THAT MAY BE CRITICAL TO PATIENT CARE. The findings were verbally communicated via telephone conference with GINNY MARAVILLA at 6:34 PM CDT on 09/22/2023. The findings were acknowledged and understood. Laboratory Results WBC 11.14 10^3/uL (3.29-11.43) 09/22/23 17:51 RBC 5.08 10^6/uL (3.85-5.65) 09/22/23 17:51 Hgb 14.90 g/dL (11.27-16.99) 09/22/23 17:51 Hct 45.0 % (37-53) 09/22/23 17:51 MCV 88.6 fl (82-101) 09/22/23 17:51 MCH 29.3 pg (27-33) 09/22/23 17:51 MCHC 33.1 g/dL (30-55) 09/22/23 17:51 RDW 13.3 % (12.1-15.1) 09/22/23 17:51 Plt Count 190 10^3/cmm (157-399) 09/22/23 17:51 MPV 12.7 fL (7.4-10.4) H 09/22/23 17:51 Neut % (Auto) 79.5 % 09/22/23 17:51 Lymph % (Auto) 12.8 % 09/22/23 17:51 Fisher % (Auto) 5.8 % 09/22/23 17:51 Eos % (Auto) 1.1 % 09/22/23 17:51 Baso % (Auto) 0.5 % 09/22/23 17:51 Neut # (Auto) 8.85 10^3/uL (1.8-7.7) H 09/22/23 17:51 Lymph # (Auto) 1.4 10^3/uL (0.8-4.8) 09/22/23 17:51 Fisher # (Auto) 0.7 10^3/uL (0.2-0.9) 09/22/23 17:51 Eos # (Auto) 0.1 10^3/uL (0.0-0.8) 09/22/23 17:51 Baso # (Auto) 0.1 10^3/uL (0.0-0.1) 09/22/23 17:51 Nucleated RBC % (auto) 0 % 09/22/23 17:51 Nucleated RBCs # 0.0 /100WBC 09/22/23 17:51 Sodium 141 mmol/L (136-145) 09/22/23 17:51 Potassium 4.2 mmol/L (3.5-5.1) 09/22/23 17:51 Chloride 105 mmol/L (98-107) 09/22/23 17:51 Carbon Dioxide 24 mmol/L (22-29) 09/22/23 17:51 Anion Gap 16.2 (5-19) 09/22/23 17:51 BUN 15 mg/dL (6-20) 09/22/23 17:51 Creatinine 1.1 mg/dL (0.7-1.2) 09/22/23 17:51 GFR Calculation 76.6 mL/min (90-130) L 09/22/23 17:51 Glucose 116 mg/dL (65-115) H 09/22/23 17:51 Calculated Osmolality 294 mOsm/kg (285-295) 09/22/23 17:51 Calcium 9.3 mg/dL (8.5-10.5) 09/22/23 17:51 Total Bilirubin 0.7 mg/dL (0.15-1.2) 09/22/23 17:51 AST 79 U/L (0-40) H 09/22/23 17:51 ALT 153 U/L (0-41) H 09/22/23 17:51 Alkaline Phosphatase 121 U/L (40-130) 09/22/23 17:51 Total Protein 8.2 g/dL (6.6-8.7) 09/22/23 17:51 Albumin 4.5 g/dL (3.5-5.2) 09/22/23 17:51 Globulin 3.7 g/dL (1.3-4.6) 09/22/23 17:51 Lipase 88 U/L (13-60) H 09/22/23 17:51 Urine Color Yellow (Yellow) 09/22/23 18:26 Urine Appearance Clear (CLEAR) 09/22/23 18:26 Urine pH 7 (5-7) 09/22/23 18:26 Ur Specific [place] 1.005 (1.005-1.030) 09/22/23 18:26 Urine Protein Neg (Negative) 09/22/23 18:26 Urine Glucose (UA) Norm (Normal) 09/22/23 18:26 Urine Ketones Negative (Negative) 09/22/23 18:26 Urine Blood Neg (Negative) 09/22/23 18:26 Urine Nitrate Negative (Negative) 09/22/23 18:26 Urine Bilirubin Neg (Negative) 09/22/23 18:26 Urine Urobilinogen Norm mg/dL (Negative) 09/22/23 18:26 Ur Leukocyte Esterase Negative (Negative) 09/22/23 18:26 All radiology interpretation(s) finalized by discharge Discharge Plan Discharge Patient Disposition: Admitted As Inpatient Admit Provider: Bj Negron Clinical Impression: Diverticulitis of colon with perforation Condition: Stable Coding Level of Care Code ED Administrative Assistant Data Entry for [employer]upali Fwcarmelo Documented by User: Tim Parham MD 09/22/23 20:26 HPI - Abdominal Pain 2 General: Chief Complaint: Abdominal Pain Stated Complaint: abd pain, testicle pain Time Seen by Provider: 09/22/23 17:48 PFSH ED 2 PFSH: Medical History (Updated 09/22/23 @ 18:47 by GUILLERMO Melara) No pertinent past medical history Surgical History (Updated 10/17/22 @ 00:27 by GERMANIA Coughlin) No pertinent past surgical history Social History Smoking and tobacco/nicotine status: current every day tobacco/nicotine user Course 2 Vital Signs: Vital signs: Vital Signs Temperature 98.5 F 09/22/23 17:33 Pulse Rate 103 H 09/22/23 20:14 Respiratory Rate 16 09/22/23 17:33 Blood Pressure 132/91 09/22/23 20:14 Pulse Oximetry 94 09/22/23 20:14 Oxygen Delivery Me thod Room Air 09/22/23 17:33 MDM - Abdominal Pain Medical Decision Making 33-year-old male patient comes in today for complaints of right lower quadrant abdominal pain with nausea and vomiting starting about 1:00 this afternoon. Patient appears mildly unwell but nontoxic. Abdomen soft with rebound tenderness and right lower quadrant abdominal tenderness. Vital signs are normal except for some mild elevation in pulse at 104. Differential diagnosis includes but not limited to gastroenteritis, constipation, gallbladder disease, pancreatitis, appendicitis, renal calculi. 1845, notified by Dr. Amado, radiologist, patient was noted to have diverticulitis with a mid sigmoid colon with extraluminal mesenteric gas suggesting a contained perforation without signs of intraperitoneal gas or abscess. Discussed this with Dr. Parham who recommended patient be admitted. Patient was given a 4.5 g dose of Zosyn. Patient was started on IV fluids. Discussed with patient who agreed to plan for admission. 1934, consulted Dr. Rob, surgeon on-call, he agreed to consult with hospitalist as needed for possible surgery recommending Zosyn and keeping patient n.p.o. Dr. Negron accepted patient for hospitalist services. Discussed case with midlevel agree with history and plan Medical Records I reviewed the patient's medical records. Lab Data I reviewed the patient's lab results. 09/22/23 17:51 09/22/23 17:51 Labs/Radiology: Radiology Impressions Abdomen/Pelvis CT 09/22/23 17:55 IMPRESSION: 1. Acute diverticulitis of the mid sigmoid colon with extraluminal mesenteric gas consistent with contained perforation. No free intraperitoneal gas, no drainable fluid collection. 2. Other nonemergent findings above. ADDENDUM: 09/22/23 4806 ADDENDUM: THIS REPORT CONTAINS FINDINGS THAT MAY BE CRITICAL TO PATIENT CARE. The findings were verbally communicated via telephone conference with GINNY MARAVILLA at 6:34 PM CDT on 09/22/2023. The findings were acknowledged and understood. Laboratory Results WBC 11.14 10^3/uL (3.29-11.43) 09/22/23 17:51 RBC 5.08 10^6/uL (3.85-5.65) 09/22/23 17:51 Hgb 14.90 g/dL (11.27-16.99) 09/22/23 17:51 Hct 45.0 % (37-53) 09/22/23 17:51 MCV 88.6 fl (82-101) 09/22/23 17:51 MCH 29.3 pg (27-33) 09/22/23 17:51 MCHC 33.1 g/dL (30-55) 09/22/23 17:51 RDW 13.3 % (12.1-15.1) 09/22/23 17:51 Plt Count 190 10^3/cmm (157-399) 09/22/23 17:51 MPV 12.7 fL (7.4-10.4) H 09/22/23 17:51 Neut % (Auto) 79.5 % 09/22/23 17:51 Lymph % (Auto) 12.8 % 09/22/23 17:51 Fisher % (Auto) 5.8 % 09/22/23 17:51 Eos % (Auto) 1.1 % 09/22/23 17:51 Baso % (Auto) 0.5 % 09/22/23 17:51 Neut # (Auto) 8.85 10^3/uL (1.8-7.7) H 09/22/23 17:51 Lymph # (Auto) 1.4 10^3/uL (0.8-4.8) 09/22/23 17:51 Fisher # (Auto) 0.7 10^3/uL (0.2-0.9) 09/22/23 17:51 Eos # (Auto) 0.1 10^3/uL (0.0-0.8) 09/22/23 17:51 Baso # (Auto) 0.1 10^3/uL (0.0-0.1) 09/22/23 17:51 Nucleated RBC % (auto) 0 % 09/22/23 17:51 Nucleated RBCs # 0.0 /100WBC 09/22/23 17:51 Sodium 141 mmol/L (136-145) 09/22/23 17:51 Potassium 4.2 mmol/L (3.5-5.1) 09/22/23 17:51 Chloride 105 mmol/L (98-107) 09/22/23 17:51 Carbon Dioxide 24 mmol/L (22-29) 09/22/23 17:51 Anion Gap 16.2 (5-19) 09/22/23 17:51 BUN 15 mg/dL (6-20) 09/22/23 17:51 Creatinine 1.1 mg/dL (0.7-1.2) 09/22/23 17:51 GFR Calculation 76.6 mL/min (90-130) L 09/22/23 17:51 Glucose 116 mg/dL (65-115) H 09/22/23 17:51 Calculated Osmolality 294 mOsm/kg (285-295) 09/22/23 17:51 Calcium 9.3 mg/dL (8.5-10.5) 09/22/23 17:51 Total Bilirubin 0.7 mg/dL (0.15-1.2) 09/22/23 17:51 AST 79 U/L (0-40) H 09/22/23 17:51 ALT 153 U/L (0-41) H 09/22/23 17:51 Alkaline Phosphatase 121 U/L (40-130) 09/22/23 17:51 Total Protein 8.2 g/dL (6.6-8.7) 09/22/23 17:51 Albumin 4.5 g/dL (3.5-5.2) 09/22/23 17:51 Globulin 3.7 g/dL (1.3-4.6) 09/22/23 17:51 Lipase 88 U/L (13-60) H 09/22/23 17:51 Urine Color Yellow (Yellow) 09/22/23 18:26 Urine Appearance Clear (CLEAR) 09/22/23 18:26 Urine pH 7 (5-7) 09/22/23 18:26 Ur Specific [place] 1.005 (1.005-1.030) 09/22/23 18:26 Urine Protein Neg (Negative) 09/22/23 18:26 Urine Glucose (UA) Norm (Normal) 09/22/23 18:26 Urine Ketones Negative (Negative) 09/22/23 18:26 Urine Blood Neg (Negative) 09/22/23 18:26 Urine Nitrate Negative (Negative) 09/22/23 18:26 Urine Bilirubin Neg (Negative) 09/22/23 18:26 Urine Urobilinogen Norm mg/dL (Negative) 09/22/23 18:26 Ur Leukocyte Esterase Negative (Negative) 09/22/23 18:26 Discharge Plan Discharge Patient Disposition: Admitted As Inpatient Admit Provider: Bj Negron Clinical Impression: Diverticulitis of colon with perforation Condition: Stable Coding Level of Care Code ED Administrative Assistant Data Entry for [employer]upali High
[2023-09-22 18:13] LABS: Basophils # 0.1 10^3/uL (0.0-0.1); Basophils % 0.5 %; Eosinophils # 0.1 10^3/uL (0.0-0.8); Eosinophils % 1.1 %; Lymphocytes # 1.4 10^3/uL (0.8-4.8); Lymphocytes % 12.8 %; Mean Corpuscular HGB Conc 33.1 g/dL (30-55); Mean Corpuscular Hemoglobin 29.3 pg (27-33); Mean Corpuscular Volume 88.6 fl (82-101); Mean Platelet Volume 12.7 fL (7.4-10.4); Monocytes # 0.7 10^3/uL (0.2-0.9); Monocytes % 5.8 %; Neutrophils # 8.85 10^3/uL (1.8-7.7); Neutrophils % 79.5 %; Nucleated Red Blood Cells % 0 %; Platelet Count 190 10^3/cmm (157-399); Red Blood Count 5.08 10^6/uL (3.85-5.65); Red Cell Distribution Width 13.3 % (12.1-15.1); White Blood Count 11.14 10^3/uL (3.29-11.43)
[2023-09-22] MEDS: iohexol 350 mg/mL 500 mL Btl (per mL) IV (18:15)
[2023-09-22] MEDS: ondansetron 2 mg/ML SDV 2 mL 4 MG IVP (18:31)
[2023-09-22] MEDS: lactated ringers 1,000 ML 999 ML IV (18:31)
[2023-09-22 18:36] LABS: Alanine Aminotransferase 153 U/L (0-41); Albumin Level 4.5 g/dL (3.5-5.2); Alkaline Phosphatase 121 U/L (40-130); Anion Gap 16.2 (5-19); Aspartate Amino Transferase 79 U/L (0-40); Blood Urea Nitrogen 15 mg/dL (6-20); Calcium 9.3 mg/dL (8.5-10.5); Carbon Dioxide 24 mmol/L (22-29); Chloride 105 mmol/L (98-107); Creatinine Clr Calc Pharmacy 113.7883; Globulin 3.7 g/dL (1.3-4.6); Glomerular Filtration Rate 76.6 mL/min (90-130); Glucose 116 mg/dL (65-115); Lipase 88 U/L (13-60); Osmolality Calculated 294 mOsm/kg (285-295); Potassium 4.2 mmol/L (3.5-5.1); Sodium 141 mmol/L (136-145); Total Bilirubin 0.7 mg/dL (0.15-1.2); Total Protein 8.2 g/dL (6.6-8.7)
[2023-09-22 18:45] LABS: Add Urine Microscopic? NO; Charge for UA Resulting for Rev
[2023-09-22] MEDS: piperacillin-tazobactam 4.5 GM in sodium chloride 0.9% (plus) 50 ML IV (18:56)
[2023-09-22 19:04] LABS: Bilirubin Urine Neg (Negative); Blood Urine Neg (Negative); Glucose Urine UA Norm (Normal); Ketones Urine Negative (Negative); Leukocyte Esterase Urine Negative (Negative); Nitrate Urine Negative (Negative); Protein Urine Neg (Negative); Specific Gravity, Urine 1.005 (1.005-1.030); Urine Appearance Clear (CLEAR); Urine Color Yellow (Yellow); Urobilinogen Urine Norm (Negative); pH Urine 7 (5-7)
--- NOTE | 2023-09-22 20:22 | PC.NURSE ---
Report was called to LISA Malik on Med-Surg. All questions and concerns were addressed at time of report.
--- NOTE | 2023-09-22 21:41 | P.HP_ITS ---
Providers/Chief Complaint 2 Admitting Physician: Bj Negron MD Chief Complaint: abd pain, testicle pain History of Present Illness Alonso Duque is a 33 year old male with a past medical history of obesity, who presents to [facility] due to abdominal pain, patient reports for the last 24 hours she has had lower abdominal pain in the right lower lateral left lower quadrant, no diarrhea, no constipation, no bladder lactulose does report nausea and vomiting today, does report lack of appetite, no personal family history of colon cancer Review of Systems 2 Card: Denies: chest pain Resp: Denies: dyspnea GI: Reports: abdominal pain, nausea and vomiting Medications/Allergies Home Medications Medication Instructions Recorded Confirmed Last Taken Type ciprofloxacin HCl 500 mg tablet 500 mg PO BID #20 tabs 07/29/19 Unknown Rx (Cipro) ondansetron HCl 4 mg tablet 4 mg PO Q6H PRN nausea and 07/29/19 Unknown Rx (Zofran) vomiting #20 tabs Allergies Allergy/AdvReac Type Severity Reaction Status Date / Time No Known Allergies Allergy Verified 10/16/22 20:24 PFSH Acute 2 PFSH: Medical History No pertinent past medical history Surgical History No pertinent past surgical history Family History Mother CAD (coronary artery disease) Social History (Updated 09/22/23 @ 21:43 by Bj Negron MD) Smoking and tobacco/nicotine status: current every day tobacco/nicotine user Alcohol intake: never Substance/Drug Use: current Substance/Drug use type: Marijuana Vitals/I&O/Wt Last Vital Signs Temp 98.5 F 09/22/23 17:33 Pulse 103 H 09/22/23 20:14 Resp 16 09/22/23 17:33 BP 132/91 09/22/23 20:14 Pulse Ox 94 09/22/23 20:14 O2 Del Method Room Air 09/22/23 20:47 09/22/23 09/22/23 09/22/23 06:59 14:59 22:59 Intake Total 50 / 50 Balance 50 / 50 Weight last 48 hrs Weight 110.223 kg Weight 113.398 kg Physical Exam 2 Const: COMMON NORMALS: no acute distress and patient oriented x3 HENMT: COMMON NORMALS: normocephalic HEAD & SCALP: normocephalic Eye: COMMON NORMALS: Equal, round and reactive pupils present and EOMs intact bilaterally Neck/C-Spine: COMMON NORMALS: no JVD Lymph: LYMPHATIC: no lymphadenopathy noted Resp: COMMON NORMALS: normal respiratory effort, No retractions, No use of accessory muscles and clear to auscultation bilaterally AUSCULTATION: clear to auscultation bilaterally Cardio: COMMON NORMALS: regular rate, regular rhythm, S1 normal heart sound present and S2 normal heart sound present RATE: regular rate RHYTHM: r egular rhythm HEART SOUNDS: S1 normal heart sound present and S2 normal heart sound present GI: OTHER: Abdomen soft, distended, scattered bowel sounds, no guarding, no rebound, no rigidity, does have exquisite left lower quadrant tenderness, with right lower quadrant tenderness Extremity: COMMON NORMALS: no calf tenderness and no pedal edema Neuro: COMMON NORMALS: patient oriented x3, CN's II-XII intact bilaterally and moves all extremities Psych: COMMON NORMALS: mental status grossly normal Data 09/22/23 17:51 09/22/23 17:51 Micro: Microbiology 09/22/23 19:37 Blood Culture - Preliminary Blood SPECIMEN COLLECTED 09/22/23 19:35 Blood Culture - Preliminary Blood SPECIMEN COLLECTED A&P Assessment and plan (1) Diverticulitis of colon with perforation: Plan CT/CT abdomen pelvis w con* [id number] IMPRESSION: 1. Acute diverticulitis of the mid sigmoid colon with extraluminal mesenteric gas consistent with contained perforation. No free intraperitoneal gas, no drainable fluid collection. 2. Other nonemergent findings above. ? Plan ? Keep n.p.o. ? IV fluids, ? Continue Zosyn ? Zofran for nausea ? Morphine for pain control ? Monitor blood cultures Serial abdominal exams ? General surgery has been consulted ? Full code ? Lovenox for DVT prophylaxis ? Transaminitis, monitor liver function closely ? Obesity Attestations 2 Medical Necessity Statement*: Patient requires hospitalization, inpatient, greater than 2 midnights for acute diverticulitis with contained perforation Diagnoses Diverticulitis of colon with perforation K57.20
[2023-09-22 22:00] LABS: C Reactive Protein 20.2 mg/L (0.0-4.9)
[2023-09-22] MEDS: morphine 4 mg/mL SDV 1 mL 2 MG IVP (22:01)
[2023-09-22] MEDS: sodium chloride 0.9% 1,000 ML 125 ML IV (22:03)
[2023-09-22] MEDS: pantoprazole 40 mg SDV IVP (22:05)
[2023-09-22 22:33] LABS: Procalcitonin 0.19 ng/mL (0-0.5); Thyroid Stimulating Hormone 1.97 uIU/mL (0.27-4.20)
[2023-09-22 22:37] LABS: Estmated Average Glucose 126
[2023-09-23] VITALS (9 sets, daily range): BP systolic 93–107; BP diastolic 58–68; PULSE 75–92; RESP 16–19; TEMP 36.6–37.3; O2SAT 92–96
[2023-09-23] MEDS: piperacillin-tazobactam 3.375 GM in sodium chloride 0.9% (plus) 50 ML IV ×3 (01:00→18:20)
[2023-09-23] MEDS: sodium chloride 0.9% 1,000 ML 125 ML IV (05:32)
[2023-09-23 06:38] LABS: Basophils % 0.4 %; Eosinophils # 0.1 10^3/uL (0.0-0.8); Eosinophils % 0.6 %; Hematocrit 42.4 % (37-53); Lymphocytes # 1.9 10^3/uL (0.8-4.8); Lymphocytes % 19.8 %; Mean Corpuscular HGB Conc 32.5 g/dL (30-55); Mean Corpuscular Hemoglobin 29.4 pg (27-33); Mean Corpuscular Volume 90.4 fl (82-101); Mean Platelet Volume 12.8 fL (7.4-10.4); Monocytes # 0.7 10^3/uL (0.2-0.9); Monocytes % 7.2 %; Neutrophils # 6.77 10^3/uL (1.8-7.7); Neutrophils % 71.7 %; Nucleated Red Blood Cells % 0 %; Platelet Count 157 10^3/cmm (157-399); Red Blood Count 4.69 10^6/uL (3.85-5.65); Red Cell Distribution Width 13.3 % (12.1-15.1); White Blood Count 9.45 10^3/uL (3.29-11.43)
[2023-09-23 06:58] LABS: Anion Gap 15.1 (5-19); Blood Urea Nitrogen 14 mg/dL (6-20); Calcium 8.9 mg/dL (8.5-10.5); Carbon Dioxide 24 mmol/L (22-29); Chloride 104 mmol/L (98-107); Creatinine Clr Calc Pharmacy 95.0702; Glomerular Filtration Rate 63.2 mL/min (90-130); Glucose 92 mg/dL (65-115); Osmolality Calculated 288 mOsm/kg (285-295); Potassium 4.1 mmol/L (3.5-5.1); Sodium 139 mmol/L (136-145)
--- NOTE | 2023-09-23 08:58 | P.CONIM_ITS ---
Providers/Reason For Consult 2 Consulting Physician/Specialty*: Dr. Henrique Rob DO/General surgery Reason for Consult*: Complicated diverticulitis with contained perforation Attending Physician: Beatrice Elizabeth MD History of Present Illness History of Present Illness Alonso Duque is a 33 year old male who presented to the hospital with 1 day history of lower abdominal pain. The pain was sharp severe and constant. The pain did not radiate. He also had nausea and emesis but denies any hematemesis. He denies any diarrhea, constipation, hematochezia and/or melena. He has never had a colonoscopy before and denies any family history of colon cancer. A CT of the abdomen pelvis shows acute complicated diverticulitis with a contained microperforation in the mesentery. Review of Systems 2 General: Reports: 10 or more systems reviewed and unremarkable except in HPI and below Medications/Allergies Home Medications Medication Instructions Recorded Confirmed Last Taken Type No Known Home Medications 09/23/23 09/23/23 Unknown History Allergies Allergy/AdvReac Type Severity Reaction Status Date / Time No Known Allergies Allergy Verified 10/16/22 20:24 Current Medications Generic Name Dose Route Start Last Admin Trade Name Freq PRN Reason Stop Dose Admin Acetaminophen 650 mg 09/22/23 21:34 09/24/23 02:42 Acetaminophen 325 Mg Tablet PO 650 mg Q6H PRN Administration Mild/Mod Pain Or Temp >/= 101 Enoxaparin Sodium 40 mg 09/22/23 21:45 09/22/23 22:07 Enoxaparin 40 Mg/0.4 Ml Syringe SUBCUT Not Given Q24H CELY Piperacillin Sod/Tazobactam 50 mls @ 12.5 mls/hr 09/23/23 02:00 09/24/23 06:47 Sod 3.375 gm/ Sodium Chloride IV Infused Q8H CELY Infusion Protocol Morphine Sulfate 2 mg 09/22/23 21:34 09/22/23 22:01 Morphine 4 Mg/Ml Sdv 1 Ml IVP 2 mg Q4H PRN Administration SEVERE PAIN Pantoprazole Sodium 40 mg 09/22/23 21:45 09/23/23 20:35 Pantoprazole 40 Mg Sdv IVP 40 mg Q24H CELY Administration PFSH Acute 2 PFSH: Medical History No pertinent past medical history Surgical History No pertinent past surgical history Family History Mother CAD (coronary artery disease) Social History Smoking and tobacco/nicotine status: current every day tobacco/nicotine user Alcohol intake: never Substance/Drug Use: current Substance/Drug use type: Marijuana Vitals/I&O/Wt Last Vital Signs Temp 98.0 F 09/24/23 07:40 Pulse 59 L 09/24/23 07:40 Resp 17 09/24/23 07:40 BP 113/71 09/24/23 07:40 Pulse Ox 96 09/24/23 07:40 O2 Del Method Room Air 09/24/23 07:40 09/23/23 09/24/23 09/24/23 22:59 06:59 14:59 Intake Total 50 / 1100 993.75 / 2093.75 Balance 50 / 1100 993.75 / 2093.75 Weight last 48 hrs Weight 236 lb 6.4 oz Weight 244 lb 1.6 oz Weight 243 lb Weight 250 lb Physical Exam 2 Narrative: General : Patient is well developed , no acute distress, oriented x3 Head : Normal cephalic, a-traumatic. Ears : Pinnae and external canal are normal. Hearing is normal. Eyes : PERRLA, Sclera and injection are normal. No conjunctival discharge. Nose : Mucous membranes are without erythema. Throat : buccal mucosa is normal, gums are without significant recession or hypertrophy. Lungs : Equal chest rise bilaterally, no use of accessory muscles, trachea is midline. Cor : Rate and rhythm are normal. Abdomen : Soft, distended, tender to palpation in the bilateral lower quadrants no g/r/m Extremities : No edema, no cyanosis or clubbing, dorsalis pedis pulses are present bilaterally, non-tender to palpation of calves. Upper extremities are normal bilaterally. Back : non-tender to palpation, no CVA tenderness. Neuro : CN II - XII intact, Upper and lower extremities have equal and full strength Data 09/24/23 05:54 09/24/23 05:54 Micro: Microbiology 09/22/23 19:37 Blood Culture - Preliminary Blood NEGATIVE TO DATE 09/22/23 19:35 Blood Culture - Preliminary Blood NEGATIVE TO DATE A&P Assessment and plan (1) Diverticulitis of colon with perforation: Plan Zosyn IV fluids N.p.o. Patient will need at least 2 days of IV antibiotics. If his abdominal exam improved significantly tomorrow I will advance him to a liquid diet. No acute surgical intervention He will need a colonoscopy in 4 to 6 weeks with recommendation to undergo sigmoidectomy afterwards Follow-up in my office 2 weeks after discharge Medical management per hospitalist Coding Level of Care Code 93407 Diagnoses Diverticulitis of colon with perforation K57.20
--- NOTE | 2023-09-23 09:48 | PC.CHAP ---
Pastoral Care Encounter/Spiritual Assessment Type of Contact [] Declined ocean lifeguard visit [] Patient/Family/Request visit [] Outpatient visit [] Follow-up visit [] Physician referral [] Code/Alert [] Routine visit [] Staff referral [] Actively dying [] Patient sleeping [] Family support [] [] Out of room [] Palliative care [] [x] Receiving care in room [] Pre-surgical visit [] Trauma [] Long length of stay [] ICU visit [] Other: Relational/Emotional Strength [] Patient feels connected with others/family/visitors/staff [] Distress [] Loneliness/isolation [] Abandonment Spirituality of Patient [] Person of Janeen [] Attends Church of their Janeen [] Believes in Prayer [] Reads Bible or Voodoo materials [] There are Spiritual issues 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 [] Prayer [] Active listening [] Non-anxious presence [] Spiritual/emotional support [] Crisis/trauma care [] Spiritual counseling [] Bereavement support [] Provided bereavement packet [] Provided Bible/devotional materials [] Provided toy/stuffed animal, coloring book to patient or family member [] Provided Communion [] Anointing/[place] [] Salvation [] Completed spiritual assessment [] Other: Impact on Illness or Injury [] Angry [] Fearful [] Anxious [] Often cries [] Exhaustion [] Unable to work [] Unable to attend buddhism [] Unable to walk/stand [] Unable to read [] Unable to drive [] Unable to eat/drink [] Unable to sleep [] Unable to be with family [] Patient intubated [] Other: Summary Time spent with patient
--- NOTE | 2023-09-23 11:51 | P.PN_ITS ---
Subjective 2 Subjective: She is stating that he had a bowel movement, passing gas, normal pain is well- controlled Currently n.p.o. on IV fluids and antibiotics Will touch with general surgery regarding his dietary plan I highly doubt patient will need any surgical intervention at this point Vitals/I&O/Wt Last Vital Signs Temp 99.0 F 09/23/23 11:17 Pulse 89 09/23/23 11:17 Resp 17 09/23/23 11:17 BP 103/66 09/23/23 11:17 Pulse Ox 96 09/23/23 11:17 O2 Del Method Room Air 09/23/23 11:17 09/22/23 09/23/23 09/23/23 22:59 06:59 14:59 Intake Total 1050 / 1050 985.417 / 2035.417 Balance 1050 / 1050 985.417 / 2035.417 Weight last 48 hrs Weight 110.722 kg Weight 110.223 kg Weight 113.398 kg Physical Exam 2 Narrative: Unkept appearance Pleasant cooperative Laying flat Active. Abdomen without active signs of peritonitis Local tenderness present Left lower quadrant GCS 15 S1, S2 Currently on room air Data 09/23/23 06:06 09/23/23 06:06 Micro: Microbiology 09/22/23 19:37 Blood Culture - Preliminary Blood SPECIMEN COLLECTED 09/22/23 19:35 Blood Culture - Preliminary Blood SPECIMEN COLLECTED A&P Assessment and plan (1) Diverticulitis of colon with perforation: Plan Diverticulitis with microperforation Patient is passing flatus, had a BM today No active/acute worsening Will touch this with Dr. Rob regarding his diet plan Continue IV fluids along antibiotics Opiate on board as well along Protonix Full code N.p.o. for now until evaluated by general surgery Attestations 2 Medical Necessity Statement*: Continue medical management Diagnoses Diverticulitis of colon with perforation K57.20
[2023-09-23] MEDS: dextrose 5%-sod chloride 0.9% 1,000 ML 75 ML IV (14:02)
[2023-09-23] MEDS: pantoprazole 40 mg SDV IVP (20:35)
[2023-09-24] VITALS (9 sets, daily range): BP systolic 107–113; BP diastolic 61–71; PULSE 47–84; RESP 16–19; TEMP 36.3–36.7; O2SAT 93–97
[2023-09-24] MEDS: dextrose 5%-sod chloride 0.9% 1,000 ML 75 ML IV (02:37)
[2023-09-24] MEDS: piperacillin-tazobactam 3.375 GM in sodium chloride 0.9% (plus) 50 ML IV ×3 (02:37→18:18)
[2023-09-24] MEDS: acetaminophen 325 mg Tablet 650 MG PO (02:42)
[2023-09-24 06:20] LABS: Basophils % 0.5 %; Eosinophils # 0.1 10^3/uL (0.0-0.8); Lymphocytes # 1.5 10^3/uL (0.8-4.8); Lymphocytes % 22.8 %; Mean Corpuscular HGB Conc 32.4 g/dL (30-55); Mean Corpuscular Hemoglobin 29.3 pg (27-33); Mean Corpuscular Volume 90.5 fl (82-101); Mean Platelet Volume 12.7 fL (7.4-10.4); Monocytes # 0.5 10^3/uL (0.2-0.9); Monocytes % 7.2 %; Neutrophils # 4.37 10^3/uL (1.8-7.7); Neutrophils % 67.2 %; Nucleated Red Blood Cells % 0 %; Platelet Count 142 10^3/cmm (157-399); Red Blood Count 4.64 10^6/uL (3.85-5.65); Red Cell Distribution Width 13.2 % (12.1-15.1)
[2023-09-24 06:40] LABS: Anion Gap 13.1 (5-19); Blood Urea Nitrogen 12 mg/dL (6-20); Calcium 8.4 mg/dL (8.5-10.5); Carbon Dioxide 24 mmol/L (22-29); Chloride 107 mmol/L (98-107); Creatinine Clr Calc Pharmacy 101.2786; Glomerular Filtration Rate 69.3 mL/min (90-130); Glucose 107 mg/dL (65-115); Osmolality Calculated 290 mOsm/kg (285-295); Potassium 4.1 mmol/L (3.5-5.1); Sodium 140 mmol/L (136-145)
--- NOTE | 2023-09-24 07:41 | PC.NURSE ---
Patients oxygen level was sitting between 86-89%, asked if we could put her oxygen on due to it sitting below 90%, patient refused stating No, i dont want to my nose is dry . Nurse notified.
--- NOTE | 2023-09-24 08:18 | P.PN_ITS ---
Subjective 2 Subjective: Patient stating that he had a bowel movement today, abdominal pain is much better Passing flatus I did reassure him that most likely today we will advance his diet but we have to wait for general surgery evaluation and recommendation for his dietary plan today Once we start diet we can discontinue D5 normal saline IV fluids Vitals/I&O/Wt Last Vital Signs Temp 98.0 F 09/24/23 07:40 Pulse 59 L 09/24/23 07:40 Resp 17 09/24/23 07:40 BP 113/71 09/24/23 07:40 Pulse Ox 96 09/24/23 07:40 O2 Del Method Room Air 09/24/23 07:40 09/23/23 09/24/23 09/24/23 22:59 06:59 14:59 Intake Total 50 / 1100 993.75 / 2093.75 Balance 50 / 1100 993.75 / 2093.75 Weight last 48 hrs Weight 107.229 kg Weight 110.722 kg Weight 110.223 kg Weight 113.398 kg Physical Exam 2 Narrative: Awake and alert Abdominal exam is benign No tenderness or sign of peritonitis GCS 15 S1, S2 Nonfocal neuroexam Euvolemic Data 09/24/23 05:54 09/24/23 05:54 Micro: Microbiology 09/22/23 19:37 Blood Culture - Preliminary Blood NEGATIVE TO DATE 09/22/23 19:35 Blood Culture - Preliminary Blood NEGATIVE TO DATE A&P Assessment and plan (1) Diverticulitis of colon with perforation: Plan Diverticulitis with microperforation Abdominal exam is benign No sign of peritonitis Having bowel movement Passing flatus Most likely his diet will be advanced by general surgery today I will discontinue IV fluids if he is tolerating diet Continue opioids along antibiotics If he keeps tolerating diet we might be able to discharge him by Tuesday He is aware that he needs colonoscopy down the road Attestations 2 Medical Necessity Statement*: Continue medical management Diagnoses Diverticulitis of colon with perforation K57.20
--- NOTE | 2023-09-24 08:21 | ECG_ITS ---
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 Measurements Intervals [place] Rate: 63 P: 46 DE: 166 QRS: 47 QRSD: 82 T: 12 QT: 380 QTc: 391 Interpretive Statements SINUS RHYTHM Normal EKG Compared to ECG 11/04/2017 05:27:08 No significant changes Electronically Signed On 09-24-2023 12:43:59 CDT by Elton Walters M.D. [email or web address]
--- NOTE | 2023-09-24 09:01 | P.PN_ITS ---
Subjective 2 Subjective: Patient seen and examined. Pain much improved today. Positive BM and flatus Vitals/I&O/Wt Last Vital Signs Temp 98.0 F 09/24/23 07:40 Pulse 59 L 09/24/23 07:40 Resp 17 09/24/23 07:40 BP 113/71 09/24/23 07:40 Pulse Ox 96 09/24/23 07:40 O2 Del Method Room Air 09/24/23 07:40 09/23/23 09/24/23 09/24/23 22:59 06:59 14:59 Intake Total 50 / 1100 993.75 / 2093.75 Balance 50 / 1100 993.75 / 2093.75 Weight last 48 hrs Weight 236 lb 6.4 oz Weight 244 lb 1.6 oz Weight 243 lb Weight 250 lb Physical Exam 2 Narrative: General: No acute distress, awake alert and oriented x 3 Abdomen: Soft, minimally distended, mild tenderness to palpation of bilateral lower quadrants without guarding or rebound Data 09/24/23 05:54 09/24/23 05:54 Micro: Microbiology 09/22/23 19:37 Blood Culture - Preliminary Blood NEGATIVE TO DATE 09/22/23 19:35 Blood Culture - Preliminary Blood NEGATIVE TO DATE A&P Assessment and plan (1) Diverticulitis of colon with perforation: Plan Zosyn IV fluids Full liquid diet If his abdominal exam improves tomorrow I will advance him to a soft diet and clear surgically for discharge No acute surgical intervention He will need a colonoscopy in 4 to 6 weeks with recommendation to undergo sigmoidectomy afterwards Follow-up in my office 2 weeks after discharge Medical management per hospitalist Attestations 2 Medical Necessity Statement*: Per primary Coding Level of Care Code 44273 Diagnoses Diverticulitis of colon with perforation K57.20
[2023-09-24] MEDS: pantoprazole 40 mg SDV IVP (20:50)
[2023-09-25] VITALS (8 sets, daily range): BP systolic 101–120; BP diastolic 47–86; PULSE 67–83; RESP 16–17; TEMP 36.5–36.7; O2SAT 95–97
[2023-09-25] MEDS: piperacillin-tazobactam 3.375 GM in sodium chloride 0.9% (plus) 50 ML IV ×2 (01:31→10:53)
[2023-09-25 06:16] LABS: Basophils % 0.4 %; Eosinophils # 0.2 10^3/uL (0.0-0.8); Eosinophils % 2.5 %; Hematocrit 43.5 % (37-53); Lymphocytes # 1.3 10^3/uL (0.8-4.8); Lymphocytes % 18.7 %; Mean Corpuscular HGB Conc 32.4 g/dL (30-55); Mean Corpuscular Hemoglobin 28.9 pg (27-33); Mean Corpuscular Volume 89.1 fl (82-101); Mean Platelet Volume 12.4 fL (7.4-10.4); Monocytes # 0.5 10^3/uL (0.2-0.9); Monocytes % 6.5 %; Neutrophils # 4.93 10^3/uL (1.8-7.7); Neutrophils % 71.6 %; Nucleated Red Blood Cells % 0 %; Platelet Count 168 10^3/cmm (157-399); Red Blood Count 4.88 10^6/uL (3.85-5.65); Red Cell Distribution Width 13.2 % (12.1-15.1); White Blood Count 6.89 10^3/uL (3.29-11.43)
[2023-09-25 06:34] LABS: Anion Gap 13.4 (5-19); Blood Urea Nitrogen 13 mg/dL (6-20); Carbon Dioxide 26 mmol/L (22-29); Chloride 108 mmol/L (98-107); Creatinine Clr Calc Pharmacy 93.7756; Glomerular Filtration Rate 63.2 mL/min (90-130); Glucose 89 mg/dL (65-115); Osmolality Calculated 296 mOsm/kg (285-295); Potassium 4.4 mmol/L (3.5-5.1); Sodium 143 mmol/L (136-145)
--- NOTE | 2023-09-25 12:05 | PM.DCS ---
Discharge Providers Date of Admission: 09/22/23 20:14 Date of Discharge: September 25, 2023 Attending Provider at Admission: Bj Negron MD Attending Provider at Discharge: Beatrice Elizabeth MD Diagnoses at Discharge Discharge Diagnosis (1) Diverticulitis of colon with perforation: Status: Acute Reason for Visit Reason for Visit: abd pain, testicle pain Hospital Course Hospital Course 33-year male who was admitted for management evaluation of diverticulitis with microperforation, there were no worsening signs of peritonitis, patient remained afebrile, no leukocytosis, he was kept n.p.o. 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 I will give him 7 more days of ciprofloxacin and Flagyl. He will need colonoscopy will give him referral to see Dr. Rob. General surgery was consulted, please see Dr. Rob's notes. Physical Exam Narrative: Awake and alert Abdomen soft nontender Bowel sound present No guarding rigidity or signs of peritonitis Pleasant cough Nonfocal neuroexam GCS 15 Discharge Data Studies Completed and Pending Completed Studies During Hospitalization Category Date Time Status CT abdomen pelvis w con* [id number] Stat Cat Scan 09/22/23 17:55 Completed Pending at discharge Category Date Time Status Blood Culture Stat Lab 09/22/23 19:37 Results Radiology Impressions Abdomen/Pelvis CT 09/22/23 17:55 IMPRESSION: 1. Acute diverticulitis of the mid sigmoid colon with extraluminal mesenteric gas consistent with contained perforation. No free intraperitoneal gas, no drainable fluid collection. 2. Other nonemergent findings above. ADDENDUM: 09/22/23 1836 ADDENDUM: THIS REPORT CONTAINS FINDINGS THAT MAY BE CRITICAL TO PATIENT CARE. The findings were verbally communicated via telephone conference with GINNY MARAVILLA at 6:34 PM CDT on 09/22/2023. The findings were acknowledged and understood. Laboratory Results WBC 6.89 10^3/uL (3.29-11.43) 09/25/23 06:03 RBC 4.88 10^6/uL (3.85-5.65) 09/25/23 06:03 Hgb 14.10 g/dL (11.27-16.99) 09/25/23 06:03 Hct 43.5 % (37-53) 09/25/23 06:03 MCV 89.1 fl (82-101) 09/25/23 06:03 MCH 28.9 pg (27-33) 09/25/23 06:03 MCHC 32.4 g/dL (30-55) 09/25/23 06:03 RDW 13.2 % (12.1-15.1) 09/25/23 06:03 Plt Count 168 10^3/cmm (157-399) 09/25/23 06:03 MPV 12.4 fL (7.4-10.4) H 09/25/23 06:03 Neut % (Auto) 71.6 % 09/25/23 06:03 Lymph % (Auto) 18.7 % 09/25/23 06:03 [place] % (Auto) 6.5 % 09/25/23 06:03 Eos % (Auto) 2.5 % 09/25/23 06:03 Baso % (Auto) 0.4 % 09/25/23 06:03 Neut # (Auto) 4.93 10^3/uL (1.8-7.7) 09/25/23 06:03 Lymph # (Auto) 1.3 10^3/uL (0.8-4.8) 09/25/23 06:03 [place] # (Auto) 0.5 10^3/uL (0.2-0.9) 09/25/23 06:03 Eos # (Auto) 0.2 10^3/uL (0.0-0.8) 09/25/23 06:03 Baso # (Auto) 0.0 10^3/uL (0.0-0.1) 09/25/23 06:03 Nucleated RBC % (auto) 0 % 09/25/23 06:03 Nucleated RBCs # 0.0 /100WBC 09/25/23 06:03 Sodium 143 mmol/L (136-145) 09/25/23 06:03 Potassium 4.4 mmol/L (3.5-5.1) 09/25/23 06:03 Chloride 108 mmol/L (98-107) H 09/25/23 06:03 Carbon Dioxide 26 mmol/L (22-29) 09/25/23 06:03 Anion Gap 13.4 (5-19) 09/25/23 06:03 BUN 13 mg/dL (6-20) 09/25/23 06:03 Creatinine 1.3 mg/dL (0.7-1.2) H 09/25/23 06:03 GFR Calculation 63.2 mL/min (90-130) L 09/25/23 06:03 Glucose 89 mg/dL (65-115) 09/25/23 06:03 Estimat Average Glucose 126 09/22/23 17:51 Hemoglobin A1c 6.0 % (4.0-6.0) 09/22/23 17:51 Calculated Osmolality 296 mOsm/kg (285-295) H 09/25/23 06:03 Calcium 9.0 mg/dL (8.5-10.5) 09/25/23 06:03 Total Bilirubin 0.7 mg/dL (0.15-1.2) 09/22/23 17:51 AST 79 U/L (0-40) H 09/22/23 17:51 ALT 153 U/L (0-41) H 09/22/23 17:51 Alkaline Phosphatase 121 U/L (40-130) 09/22/23 17:51 C-Reactive Protein 20.2 mg/L (0.0-4.9) H 09/22/23 17:51 Total Protein 8.2 g/dL (6.6-8.7) 09/22/23 17:51 Albumin 4.5 g/dL (3.5-5.2) 09/22/23 17:51 Globulin 3.7 g/dL (1.3-4.6) 09/22/23 17:51 Lipase 88 U/L (13-60) H 09/22/23 17:51 Procalcitonin 0.19 ng/mL (0-0.5) 09/22/23 17:51 TSH 1.97 uIU/mL (0.27-4.20) 09/22/23 17:51 Urine Color Yellow (Yellow) 09/22/23 18:26 Urine Appearance Clear (CLEAR) 09/22/23 18:26 Urine pH 7 (5-7) 09/22/23 18:26 Ur Specific Rousseau 1.005 (1.005-1.030) 09/22/23 18:26 Urine Protein Neg (Negative) 09/22/23 18:26 Urine Glucose (UA) Norm (Normal) 09/22/23 18:26 Urine Ketones Negative (Negative) 09/22/23 18:26 Urine Blood Neg (Negative) 09/22/23 18:26 Urine Nitrate Negative (Negative) 09/22/23 18:26 Urine Bilirubin Neg (Negative) 09/22/23 18:26 Urine Urobilinogen Norm mg/dL (Negative) 09/22/23 18:26 Ur Leukocyte Esterase Negative (Negative) 09/22/23 18:26 Vitals Last Vital Signs Temp 97.7 F 09/25/23 11:37 Pulse 72 09/25/23 11:37 Resp 17 09/25/23 11:37 BP 106/67 09/25/23 11:37 Pulse Ox 95 09/25/23 11:37 O2 Del Method Room Air 09/25/23 11:37 Discharge Plan Discharge Patient Disposition: Home Condition: Stable Prescriptions: New ciprofloxacin HCl 500 mg tablet 500 mg PO BID Qty: 14 0RF acetaminophen 325 mg Tablet 650 mg PO Q6H PRN (Reason: Mild/Mod Pain Or Temp >/= 101) Qty: 30 0RF metronidazole 500 mg tablet 500 mg PO BID 7 Days Qty: 14 0RF No Action No Known Home Medications Discharge Orders: Discharge Order (Routine); Ordered 09/25/23 Ordered By: Beatrice Elizabeth Referrals: Henrique Rob DO [Physician] - 2 weeks Discharge Diet: Full LIquid Patient Instructions: Opioid Safety Discharge Attestations Time Spent in Discharge Care*: greater than 30 min Quality Metrics Clinical Quality Measures [ No reported AMI, CVA or VTE this stay] Coding Level of Care Code Acute Code for Chg Fwd Diagnoses Diverticulitis of colon with perforation K57.20
--- NOTE | 2023-09-25 12:09 | PM.MISC ---
Miscellaneous Note Note: To whom it may concern, Mr. Duque was admitted to the hospital for management evaluation of diverticulitis on 09/21, he is being discharged on 09/24 with stable hemodynamics. I have not put him on any opioids, he has been instructed to keep himself full liquid diet and advance his diet gradually, he will need colonoscopy within next few weeks. For now he will finish 7 days of antibiotics. 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 Should you have any questions please do not hesitate to reach out to hospitalist department at [facility] [phone] Hospitalist at [facility] Thank you
--- NOTE | 2023-09-25 16:07 | P.PN_ITS ---
Subjective 2 Subjective: Patient seen and examined. Abdominal pain resolved. Tolerating full liquid diet. Vitals/I&O/Wt Last Vital Signs Temp 97.7 F 09/25/23 15:44 Pulse 83 09/25/23 15:44 Resp 17 09/25/23 15:44 BP 117/86 09/25/23 15:44 Pulse Ox 97 09/25/23 15:44 O2 Del Method Room Air 09/25/23 15:44 09/25/23 09/25/23 09/25/23 06:59 14:59 22:59 Intake Total 100 / 1750 600 / 600 50 / 650 Balance 100 / 1750 600 / 600 50 / 650 Weight last 48 hrs Weight 237 lb 12.8 oz Weight 236 lb 6.4 oz Physical Exam 2 Narrative: General: No acute distress, awake alert and oriented x 3 Abdomen: Soft, nondistended, nontender, no guarding rebound or masses Data 09/25/23 06:03 09/25/23 06:03 A&P Assessment and plan (1) Diverticulitis of colon with perforation: Plan Zosyn IV fluids Soft diet If his abdominal exam improves tomorrow I will advance him to a soft diet and clear surgically for discharge No acute surgical intervention Surgically stable for discharge Recommend 2-week course of Augmentin completed with Augmentin at home He will need a colonoscopy in 4 to 6 weeks with recommendation to undergo sigmoidectomy afterwards Follow-up in my office 2 weeks after discharge Medical management per hospitalist Attestations 2 Medical Necessity Statement*: Per primary Coding Level of Care Code 86604 Diagnoses Diverticulitis of colon with perforation K57.20
== END 2023-09-25 16:30 | disposition home or self-care (01) | DRG 392 ==
LOC: ER 18:47 → MEDSURG 20:17
PROVIDERS: Emergency Medicine; Admitting Provider Family Medicine; Emergency Provider Nurse Practitioner Family; Visit Provider Internal Medicine
DX: K57.20 Diverticulitis of large intestine with perforation and abscess without bleeding (principal); F17.210 Nicotine dependence, cigarettes, uncomplicated; E66.9 Obesity, unspecified; Z68.37 Body mass index [BMI] 37.0-37.9, adult
CPT/HCPCS: 36415; 74177; 80048; 80053; 81003; 83036; 83690; 84145; 84443; 85025; 86140; 87040; 93005; 96365; 96375; 99285; C9113; J1650; J2270; J2405; J2543; J7030; J7042; J7120; Q9967

== ENCOUNTER 2023-11-23 07:24 | Day surgery (SDC) | payer BC, SELFPAY ==
[2023-11-23 07:41] VITALS: BP 125/82; PULSE 53; RESP 16; TEMP 36.3; O2SAT 97; BMI 37.5
[2023-11-23] MEDS: sodium chloride 0.9% 1,000 ML 30 ML IV (07:53)
--- NOTE | 2023-11-23 08:32 | P.ANESASSM_ITS ---
Pre-Anesthetic Assessment Height/Weight: Height 1.7 m Weight 108.862 kg Temp Pulse Resp BP Pulse Ox O2 Del Method 97.3 F L 53 L 16 125/82 97 Room Air 11/23/23 07:41 11/23/23 07:41 11/23/23 07:41 11/23/23 07:41 11/23/23 07:41 11/23/23 07:41 Operation Date: 11/23/23 08:45 Proposed Procedures p EGD 04955, 52578, G0105, K57.32, K21.9(Not Applicable) - DO carolina Hdez Colonoscopy(Not Applicable) - Henrique Rob DO Familial anesthetic complications: Never had anesthesia, no family complications Was Beta Mickey taken within 24 hours: N/A Was Clonidine taken within 24 hours: N/A Last intake: Intake Last Liquid Date 11/22/23 Last Liquid Time 23:00 Last Solid Date 11/21/23 Last Solid Time 22:00 Social Tobacco (Smoke and vape, marijuana daily) and No tobacco .5 pack(s) per day Exam alert, oriented x 3, clear to auscultation bilaterally and regular rate & rhythm Airway Submandibular: within normal limits ([place]) Cervical ROM: within normal limits Mallampati: Class II Dentition: full Comments: Comments: Right back molar broken History/ROS No significant history except as noted and No significant complaints Pulmonary Sleep Apnea CV/HEM None reported None reported Hepatic None reported GI Gastroesophageal Reflux Disease (None this morning, controlled with meds) Diverticulitis Metabolic Diabetes Mellitus (Pre diabetic) and Morbid Obesity [facility] [place] Lower Back Pain Anesthetic Plan ASA status: 3 Anesthesia: Anesthesia Evaluation, General and MAC Risk of > 500 ml blood loss (7ml/kg in children): No Medications/Allergies Home Medications Medication Instructions Recorded Confirmed Last Taken Type acetaminophen 325 mg tablet 650 mg (2 x 325 mg) PO Q6H PRN 09/25/23 11/23/23 Unknown Rx Mild/Mod Pain Or Temp >/= 101 #30 tabs pantoprazole 40 mg tablet,delayed 40 mg PO BID 6 weeks #84 tabs 10/10/23 11/21/23 11/21/23 Rx release (Protonix) Allergies Allergy/AdvReac Type Severity Reaction Status Date / Time No Known Allergies Allergy Verified 11/21/23 11:39 Current Medications Generic Name Dose Route Start Last Admin Trade Name Freq PRN Reason Stop Dose Admin Sodium Chloride 1,000 mls @ 30 mls/hr 11/23/23 07:45 11/23/23 07:53 Sodium Chloride 0.9% IV 11/24/23 07:44 30 mls/hr .Q24H CELY Administration PFSH Anesthesia Medical History (Updated 10/10/23 @ 09:34 by Henrique Rob DO) Diverticulitis of large intestine with complication Diverticulitis of colon with perforation No pertinent past medical history Surgical History No pertinent past surgical history Family History Mother CAD (coronary artery disease) Social History Smoking and tobacco/nicotine status: current every day tobacco/nicotine user Alcohol intake: never Substance/Drug Use: current Data Anesthesia Cardiac Studies: No Data to Display
--- NOTE | 2023-11-23 08:56 | PM.HP ---
Providers/Chief Complaint Primary Care Provider: GUILLERMO Huston Chief Complaint: K57.32, K21.9 History of Present Illness Alonso Duque is a 33 year old male Review of Systems General: Reports: 10 or more systems reviewed and unremarkable except in HPI and below Medications/Allergies Home Medications Medication Instructions Recorded Confirmed Last Taken Type acetaminophen 325 mg tablet 650 mg (2 x 325 mg) PO Q6H PRN 09/25/23 11/23/23 Unknown Rx Mild/Mod Pain Or Temp >/= 101 #30 tabs pantoprazole 40 mg tablet,delayed 40 mg PO BID 6 weeks #84 tabs 10/10/23 11/21/23 11/21/23 Rx release (Protonix) Allergies Allergy/AdvReac Type Severity Reaction Status Date / Time No Known Allergies Allergy Verified 11/21/23 11:39 PFSH Acute PFSH: Medical History (Updated 10/10/23 @ 09:34 by Henrique Rob DO) Diverticulitis of large intestine with complication Diverticulitis of colon with perforation No pertinent past medical history Surgical History No pertinent past surgical history Family History Mother CAD (coronary artery disease) Social History Smoking and tobacco/nicotine status: current every day tobacco/nicotine user Alcohol intake: never Substance/Drug Use: current Vitals/I&O/Wt Last Vital Signs Temp 97.3 F L 11/23/23 07:41 Pulse 53 L 11/23/23 07:41 Resp 16 11/23/23 07:41 BP 125/82 11/23/23 07:41 Pulse Ox 97 11/23/23 07:41 O2 Del Method Room Air 11/23/23 07:41 Weight last 48 hrs Weight 240 lb A&P Assessment and plan (1) Diverticulitis of large intestine with complication: (2) GERD (gastroesophageal reflux disease): Plan EGD and colonoscopy Attestations Medical Necessity Statement*: Home Coding Level of Care Code Acute Code for [facility] Fwd Diagnoses Diverticulitis of large intestine with complication K57.32 GERD (gastroesophageal reflux disease) K21.9
[2023-11-23 09:23] VITALS: BP 96/58; PULSE 74; RESP 16; TEMP 36.3; O2SAT 94
[2023-11-23 09:33] VITALS: BP 105/64; PULSE 77; RESP 16; O2SAT 94
--- NOTE | 2023-11-23 09:50 | ANE.PACU2 ---
Inpatient post-anesthesia follow up: Airway intact: Yes Vital signs: Temperature 97.3 F Pulse Rate 77 Respiratory Rate 16 Blood Pressure 105/64 Pulse Oximetry 94 Oxygen Delivery Me thod Room Air Oxygen Flow Rate 3 Fraction of Inspir ed Oxygen Hydration adequate: Yes Nausea and vomiting: No Pain level: 1 Mental status: Baseline
== END 2023-11-23 09:53 | disposition home or self-care (01) ==
PROVIDERS: PCP Nurse Practitioner Family; Visit Provider Surgery
PROC: 0DJ08ZZ Inspection of Upper Intestinal Tract, Via Natural or Artificial Opening Endoscopic (ICD-10-PCS; CPT 43235; principal; 2023-11-23 08:45)
PROC: 0DJD8ZZ Inspection of Lower Intestinal Tract, Via Natural or Artificial Opening Endoscopic (ICD-10-PCS; CPT 45378; 2023-11-23 08:45)
DX: K57.30 Diverticulosis of large intestine without perforation or abscess without bleeding (principal); K21.9 Gastro-esophageal reflux disease without esophagitis; F17.200 Nicotine dependence, unspecified, uncomplicated; K29.80 Duodenitis without bleeding; K29.50 Unspecified chronic gastritis without bleeding; D12.3 Benign neoplasm of transverse colon; D12.8 Benign neoplasm of rectum; G47.30 Sleep apnea, unspecified; E11.9 Type 2 diabetes mellitus without complications; E66.01 Morbid (severe) obesity due to excess calories; Z68.37 Body mass index [BMI] 37.0-37.9, adult
CPT/HCPCS: 43239; 45385; 88305; J2704; J3490; J7030

== ENCOUNTER 2024-01-10 10:24 | Inpatient (IN) | payer BC, SELFPAY ==
[2024-01-10] VITALS (20 sets, daily range): BP systolic 114–139; BP diastolic 69–85; PULSE 54–109; RESP 16–19; TEMP 36.3–37; O2SAT 90–100; BMI 36.0
[2024-01-10] MEDS: sodium chloride 0.9% 1,000 ML 30 ML IV (06:20)
--- NOTE | 2024-01-10 06:41 | ANES.PREANE2 ---
Pre-Anesthetic Assessment Height/Weight: Height 5 ft 7 in Weight 230 lb Temp Pulse Resp BP Pulse Ox O2 Del Method 97.3 F L 54 L 18 138/69 98 Room Air 01/10/24 06:07 01/10/24 06:07 01/10/24 06:07 01/10/24 06:07 01/10/24 06:07 01/10/24 06:08 Operation Date: 01/10/24 07:00 Proposed Procedures p Laparoscopic Sigmoidectomy 07411, D36.9(Not Applicable) - Henrique Rob DO Last intake: Intake Last Liquid Date 01/09/24 Last Liquid Time 22:00 Last Solid Date 01/09/24 Last Solid Time 18:00 Social Alcohol and No alcohol Exam alert, oriented x 3, clear to auscultation bilaterally and regular rate & rhythm Airway Submandibular: within normal limits Cervical ROM: within normal limits Mallampati: Class III Comments: Comments: poor dentition Anesthetic Plan ASA status: 2 Anesthesia: General Other: No prior issues with anesthesia N.p.o. since midnight GERD, controlled on meds EKG NSR Previous labs reviewed and acceptable for surgery Current smoker, denies inhaler use Noncardiac issues Plan for GETA Medications/Allergies Home Medications Medication Instructions Recorded Confirmed Last Taken Type acetaminophen 325 mg tablet 650 mg (2 x 325 mg) PO Q6H PRN 09/25/23 01/02/24 Unknown Rx Mild/Mod Pain Or Temp >/= 101 #30 tabs pantoprazole 40 mg tablet,delayed 40 mg PO BID 6 weeks #84 tabs 10/10/23 01/02/24 11/21/23 Rx release (Protonix) erythromycin 500 mg tablet 500 mg PO TID 1 day #3 tabs 12/19/23 01/02/24 01/02/24 Rx neomycin 500 mg tablet 500 mg PO ONCE 1 day #6 tabs 12/19/23 01/02/24 01/02/24 Rx Allergies Allergy/AdvReac Type Severity Reaction Status Date / Time No Known Allergies Allergy Verified 01/10/24 06:06 Current Medications Generic Name Dose Route Start Last Admin Trade Name Freq PRN Reason Stop Dose Admin Sodium Chloride 1,000 mls @ 30 mls/hr 01/10/24 06:15 01/10/24 06:20 Sodium Chloride 0.9% IV 01/11/24 06:14 30 mls/hr .Q24H CELY Administration PFSH Anesthesia Medical History (Updated 12/23/23 @ 22:49 by Henrique Rob DO) Tubular adenoma of colon Diverticulitis of large intestine with complication Diverticulitis of colon with perforation No pertinent past medical history Surgical History No pertinent past surgical history Family History Mother CAD (coronary artery disease) Social History Smoking and tobacco/nicotine status: current every day tobacco/nicotine user Alcohol intake: never Substance/Drug Use: current Data Anesthesia Cardiac Studies: No Data to Display
--- NOTE | 2024-01-10 06:56 | W.PM.OPSUD ---
Surgery/Procedure H&P Update DATE OF PROCEDURE: January 10, 2024 DATE H&P PERFORMED: 12/19/23 H&P UPDATE INFORMATION: I have reviewed H&P completed within last 30 days, I have examined patient prior to procedure and No changes to prior documentation PLANNED PROCEDURE: Operation Date: 01/10/24 07:00 Proposed Procedures p Laparoscopic Sigmoidectomy 86415, D36.9(Not Applicable) - Henrique Rob,
[2024-01-10] MEDS: piperacillin-tazobactam 3.375 GM in sodium chloride 0.9% (plus) 50 ML IV (06:59)
[2024-01-10] MEDS: lidocaine-epi 2% PF 1:200,000 20 mL SDV XX (09:40)
--- NOTE | 2024-01-10 10:00 | ANES.PROC ---
Anesthesia Procedures Procedure/Date: 01/10/24 Nerve Block ^: Nerve Block 1: Main Anesthesia: general anesthesia Time Out Performed: Yes Nerve block location: other (bilateral TAP) Anesthesia monitors applied: pulse oximetry, EKG, BP cuff and oxygen Nerve block position: supine Anesthetic Used: other (ropivicaine 0.2%) Amount of anesthesia used (mL): 60 Ultrasound used to: recognize landmarks Nerve Stimulator Used?: No Interscalene/Femoral BLK: other needle (Pjunk) Injection: neg aspiration of heme Patient Tolerated Procedure: well Complications: none
--- NOTE | 2024-01-10 10:23 | PM.OP ---
Operative Report Date of procedure: January 10, 2024 Pre-op diagnosis: History of complicated diverticulitis Post-op diagnosis: same Procedure done: Laparoscopic sigmoidectomy Sigmoidoscopy Implants: None Specimens removed/disposition: Sigmoid Anastomotic rings Surgeon: Henrique Rob DO Anesthesia: General and Local Estimated blood loss (mL): 100 Complications: None apparent Brief History: This is a very pleasant 33-year-old gentleman who had diverticulitis with a contained microperforation. He was treated appropriately with antibiotics and bowel rest and then underwent colonoscopy in which diverticulosis and tubular adenomas were identified. The risks and benefits of the procedure, including but not limited to, bleeding, infection, scar, numbness, pain, anastomotic leak, damage to surrounding structures, need for further surgery, were explained to the patient. He was understanding of the risks and wished to proceed. Procedure: Patient was brought in the operative room placed on the OR table in the supine lithotomy position. A [place] catheter was placed as was a nasogastric tube. The abdomen was inspected prepped and draped in usual sterile fashion. The anus was also sterilely draped. A timeout was performed. All present were in agreement. 2% lidocaine with epinephrine was used to anesthetize the skin over Jacinto's point. A 15 blade scalpel was used to make a stab incision. A Veress needle was placed and intra-abdominal insufflation was brought to 15 mmHg. Next 2% lidocaine with epinephrine was used to anesthetize the skin supraumbilically. A 5 mm trocar was placed under Optiview. 2 more 5 mm trocars were placed into the right lower quadrant. Using the laparoscopic LigaSure, the right white line of Toldt was taken down. There were adhesions from the sigmoid to the bladder which were taken down sharply. The sigmoid was completely freed down to the rectum. A small laparotomy incision was made suprapubically and vertically after localizing with 2% lidocaine with epinephrine. Dissection was carried down to the rectus fascia with electrocautery. The rectus fascia was opened with electrocautery. Peritoneum was entered sharply and then the celiotomy was continued caudad and cephalad. A small window was made in the mesentery of the mesorectum and a contour stapler was used to transect the colon at the rectosigmoid junction. The laparoscopic LigaSure was then used to transect the mesentery up through the sigmoid colon to the descending colon. A TA stapler was then used to transect the colon. A pursestring stapler was then placed proximal to the TA stapler and fired. A 10 blade scalpel was then used to transect the colon between the TA stapler and the pursestring stapler. The anvil from the 29 mm EEA stapler was then placed into the descending colon. The string was then tied down. Additional 3-0 Vicryl's were used to reinforce the colon around the anvil. The colon was then cleared of all fat using electrocautery. The anus was then dilated by my delivery driver assistant serially up to 33 mm. The 29 mm EEA stapler was then placed into the anus. The stapler was then opened through the staple line. The anvil was then attached to the stapler and the stapler was tightened down. Special attention was paid to make sure there was no twisting of the colon or tension. The EEA stapler was then fired and removed. 2 intact anastomotic rings were identified. The sigmoidoscope was then obtained and used to cannulate the anus. The abdomen was filled with warm saline. The endoscope was then advanced past an intact anastomosis and up into the descending colon. No air leak was identified. The sigmoidoscope was then removed. I changed gown and gloves and went back up to the abdomen. The abdomen was irrigated and no further bleeding was identified. The mini laparotomy incision was then closed with #1 PDS in a running fashion x 2. Skin was washed and dried. Skin was closed with alex. Sterile bandages were applied. Patient tolerated procedure well.
[2024-01-10] MEDS: HYDROmorphone 1 mg/mL INJ 1 mL 0.5 MG IVP (10:40)
--- NOTE | 2024-01-10 11:52 | ANE.PACU2 ---
Inpatient post-anesthesia follow up: Airway intact: Yes Vital signs: Temperature 98.1 F Pulse Rate 109 Respiratory Rate 19 Blood Pressure 139/79 Pulse Oximetry 96 Oxygen Delivery Me thod Room Air Oxygen Flow Rate 6 Fraction of Inspir ed Oxygen Hydration adequate: Yes Nausea and vomiting: No Pain level: 1 Mental status: Baseline
[2024-01-10] MEDS: dextrose 5%-sod chloride 0.45% 1,000 ML 125 ML IV ×2 (12:03→22:13)
[2024-01-10] MEDS: pantoprazole 40 mg SDV IVP ×2 (12:03→22:13)
[2024-01-10] MEDS: HYDROmorphone 1 mg/mL INJ 1 mL IVP ×2 (15:13→22:14)
[2024-01-10] MEDS: heparin 5,000 unit/mL INJ 1 mL 5000 UNIT SUBCUT (18:07)
[2024-01-11] VITALS (13 sets, daily range): BP systolic 100–124; BP diastolic 54–84; PULSE 67–107; RESP 17–20; TEMP 36.3–36.8; O2SAT 91–96
[2024-01-11] MEDS: HYDROmorphone 1 mg/mL INJ 1 mL IVP ×5 (04:37→20:48)
[2024-01-11] MEDS: dextrose 5%-sod chloride 0.45% 1,000 ML 125 ML IV ×3 (05:50→20:47)
[2024-01-11] MEDS: heparin 5,000 unit/mL INJ 1 mL 5000 UNIT SUBCUT ×2 (05:51→17:42)
[2024-01-11 06:10] LABS: Basophils % 0.2 %; Hematocrit 46.1 % (37-53); Lymphocytes # 1.9 10^3/uL (0.8-4.8); Lymphocytes % 10.6 %; Mean Corpuscular HGB Conc 33.2 g/dL (30-55); Mean Corpuscular Hemoglobin 29.1 pg (27-33); Mean Corpuscular Volume 87.8 fl (82-101); Mean Platelet Volume 11.8 fL (7.4-10.4); Monocytes # 1.2 10^3/uL (0.2-0.9); Monocytes % 6.6 %; Neutrophils # 14.63 10^3/uL (1.8-7.7); Neutrophils % 82.3 %; Nucleated Red Blood Cells % 0 %; Platelet Count 263 10^3/cmm (157-399); Red Blood Count 5.25 10^6/uL (3.85-5.65); White Blood Count 17.78 10^3/uL (3.29-11.43)
[2024-01-11 06:26] LABS: Anion Gap 19.5 (5-19); Carbon Dioxide 20 mmol/L (22-29); Chloride 105 mmol/L (98-107); Creatinine Clr Calc Pharmacy 106.1242; Glomerular Filtration Rate 76.6 mL/min (90-130); Glucose 135 mg/dL (65-115); Magnesium 2.4 mg/dL (1.7-2.3); Potassium 4.5 mmol/L (3.5-5.1); Sodium 140 mmol/L (136-145)
[2024-01-11 07:02] LABS: Blood Urea Nitrogen 13 mg/dL (6-20); Osmolality Calculated 292 mOsm/kg (285-295)
[2024-01-11] MEDS: piperacillin-tazobactam 3.375 GM in sodium chloride 0.9% (plus) 50 ML IV ×3 (07:24→22:41)
--- NOTE | 2024-01-11 08:52 | PC.CHAP ---
Pastoral Care Encounter/Spiritual Assessment Type of Contact [] Declined auditor internal visit [] Patient/Family/Request visit [] Outpatient visit [] Follow-up visit [] Physician referral [] Code/Alert [x] Routine visit [] Staff referral [] Actively dying [] Patient sleeping [] Family support [] [] Out of room [] Palliative care [] [] Receiving care in room [] Pre-surgical visit [] Trauma [] Long length of stay [] ICU visit [] Other: Relational/Emotional Strength [x] Patient feels connected with others/family/visitors/staff [] Distress [] Loneliness/isolation [] Abandonment Spirituality of Patient [x] Person of Janeen [] Attends Judaism of their Janeen x[] Believes in Prayer [] Reads Bible or Rastafari materials [] There are Spiritual issues to be addressed Product Development Scientist Interventions [x] Prayer [x] Active listening [] Non-anxious presence [x] Spiritual/emotional support [] Crisis/trauma care [] Spiritual counseling [] Bereavement support [] Provided bereavement packet [] Provided Bible/devotional materials [] Provided toy/stuffed animal, coloring book to patient or family member [] Provided Communion [] Anointing/Peetz [] Salvation [x] Completed spiritual assessment [] Other: Impact on Illness or Injury [] Angry [] Fearful [] Anxious [] Often cries [] Exhaustion [] Unable to work [] Unable to attend yazdanism [] Unable to walk/stand [] Unable to read [] Unable to drive [] Unable to eat/drink [] Unable to sleep [] Unable to be with family [] Patient intubated [] Other: Summary Time spent with patient 5 min
[2024-01-11] MEDS: pantoprazole 40 mg SDV IVP ×2 (11:05→22:41)
--- NOTE | 2024-01-11 15:31 | P.PN_ITS ---
Subjective 2 Subjective: Patient seen and examined. He is doing very well. Pain controlled. Passing flatus Vitals/I&O/Wt Last Vital Signs Temp 97.9 F 01/11/24 11:49 Pulse 67 01/11/24 11:49 Resp 18 01/11/24 13:10 BP 122/54 01/11/24 11:49 Pulse Ox 96 01/11/24 11:49 O2 Del Method Room Air 01/11/24 11:49 O2 Flow Rate 6 01/10/24 10:48 01/11/24 01/11/24 01/11/24 06:59 14:59 22:59 Intake Total 952.083 / 2610.083 914.583 / 914.583 Output Total 600 / 2900 945 / 945 Balance 352.083 / -289.917 -30.417 / -30.417 Weight last 48 hrs Weight 218 lb 7 oz Weight 230 lb Physical Exam 2 Narrative: General: No acute distress, awake alert and oriented x 3 Abdomen: Soft, nondistended, appropriately tender Dressings clean dry and intact Urinary Catheter Management: [place]: Cath Placed During This Visit: yes, but has since been removed by the nurse Reason for Continuing Indwelling Catheter: Decision to DC Catheter Urinary Catheter Date of Insertion: 01/10/24 Urinary Catheter Time of Insertion: 07:10 Date Urinary Catheter Removed: 01/11/24 Time Urinary Catheter Discontinued: 05:40 Data 01/11/24 05:53 01/11/24 05:53 A&P Assessment and plan (1) Diverticulitis of large intestine with complication: Plan Postop day #1 status post laparoscopic sigmoidectomy DC NG tube Clear liquid diet Pain control Attestations 2 Medical Necessity Statement*: Patient requires multiple more nights in the hospital for recovery And return of bowel functionafter laparoscopic sigmoidectomy Coding Level of Care Code Acute Code for [facility] Fw Diagnoses Diverticulitis of large intestine with complication K57.32
[2024-01-12 03:29] VITALS: RESP 20
[2024-01-12] MEDS: HYDROmorphone 1 mg/mL INJ 1 mL IVP (03:29)
[2024-01-12 03:50] LABS: Basophils % 0.3 %; Eosinophils % 0.5 %; Lymphocytes # 2.4 10^3/uL (0.8-4.8); Lymphocytes % 27.5 %; Mean Corpuscular HGB Conc 33.1 g/dL (30-55); Mean Corpuscular Hemoglobin 29.5 pg (27-33); Mean Platelet Volume 12.2 fL (7.4-10.4); Monocytes # 0.6 10^3/uL (0.2-0.9); Neutrophils # 5.54 10^3/uL (1.8-7.7); Neutrophils % 64.6 %; Nucleated Red Blood Cells % 0 %; Platelet Count 136 10^3/cmm (157-399); Red Blood Count 4.38 10^6/uL (3.85-5.65); Red Cell Distribution Width 13.1 % (12.1-15.1); White Blood Count 8.58 10^3/uL (3.29-11.43)
[2024-01-12 04:00] VITALS: BP 116/69; PULSE 83; RESP 18; TEMP 36.5; O2SAT 97
[2024-01-12 04:09] LABS: Anion Gap 13.7 (5-19); Blood Urea Nitrogen 13 mg/dL (6-20); Calcium 8.5 mg/dL (8.5-10.5); Carbon Dioxide 25 mmol/L (22-29); Chloride 106 mmol/L (98-107); Creatinine Clr Calc Pharmacy 97.2805; Glomerular Filtration Rate 69.3 mL/min (90-130); Glucose 108 mg/dL (65-115); Magnesium 1.9 mg/dL (1.7-2.3); Osmolality Calculated 293 mOsm/kg (285-295); Potassium 3.7 mmol/L (3.5-5.1); Sodium 141 mmol/L (136-145)
[2024-01-12] MEDS: dextrose 5%-sod chloride 0.45% 1,000 ML 125 ML IV (04:18)
[2024-01-12] MEDS: heparin 5,000 unit/mL INJ 1 mL 5000 UNIT SUBCUT (06:44)
[2024-01-12 07:28] VITALS: BMI 34.9
[2024-01-12 07:29] VITALS: BP 112/74; PULSE 75; RESP 18; TEMP 36.4; O2SAT 97
--- NOTE | 2024-01-12 08:17 | P.DS_ITS ---
Discharge Providers Date of Admission: 01/10/24 10:24 Date of Discharge: January 12, 2024 Attending Provider at Admission: Henrique Rob DO Attending Provider at Discharge: Henrique Rob DO Primary Care Provider: GUILLERMO Huston Diagnoses at Discharge Discharge Diagnosis (1) Diverticulitis of large intestine with complication: Status: Acute Reason for Visit Reason for Visit: D36.9 Hospital Course Hospital Course Patient 33-year-old gentleman who presented to the hospital for an elective laparoscopic sigmoidectomy following complicated diverticulitis. He did well postoperatively and was discharged home in good condition on postoperative day #2 Physical Exam Narrative: General : Patient is well developed , no acute distress, oriented x3 Head : Normal cephalic, a-traumatic. Ears : Pinnae and external canal are normal. Hearing is normal. Eyes : PERRLA, Sclera and injection are normal. No conjunctival discharge. Nose : Mucous membranes are without erythema. Throat : buccal mucosa is normal, gums are without significant recession or hypertrophy. Lungs : Equal chest rise bilaterally, no use of accessory muscles, trachea is midline. Cor : Rate and rhythm are normal. Abdomen : Soft, ND, appropriately tender incisions intact without erythema or exudate, no g/r/m Extremities : No edema, no cyanosis or clubbing, dorsalis pedis pulses are present bilaterally, non-tender to palpation of calves. Upper extremities are normal bilaterally. Back : non-tender to palpation, no CVA tenderness. Neuro : CN II - XII intact, Upper and lower extremities have equal and full strength Urinary Catheter Management: [place]: Cath Placed During This Visit: yes, but has since been removed by the nurse Reason for Continuing Indwelling Catheter: Decision to DC Catheter Urinary Catheter Date of Insertion: 01/10/24 Urinary Catheter Time of Insertion: 07:10 Date Urinary Catheter Removed: 01/11/24 Time Urinary Catheter Discontinued: 05:40 Discharge Data Studies Completed and Pending Pending at discharge Category Date Time Status Basic Metabolic Panel AM LABS Lab 01/13/24 04:00 Ordered Basic Metabolic Panel Routine Lab 01/10/24 05:59 Uncollected Complete Blood Count w/Auto AM LABS Lab 01/13/24 04:00 Ordered Complete Blood Count w/Auto Routine Lab 01/10/24 05:59 Uncollected Magnesium AM LABS Lab 01/13/24 04:00 Ordered Pathology: Surgical [PTH] Routine Pth 01/10/24 09:57 Received Laboratory Results WBC 8.58 10^3/uL (3.29-11.43) 01/12/24 03:18 RBC 4.38 10^6/uL (3.85-5.65) 01/12/24 03:18 Hgb 12.90 g/dL (11.27-16.99) 01/12/24 03:18 Hct 39.0 % (37-53) 01/12/24 03:18 MCV 89.0 fl (82-101) 01/12/24 03:18 MCH 29.5 pg (27-33) 01/12/24 03:18 MCHC 33.1 g/dL (30-55) 01/12/24 03:18 RDW 13.1 % (12.1-15.1) 01/12/24 03:18 Plt Count 136 10^3/cmm (157-399) L D 01/12/24 03:18 MPV 12.2 fL (7.4-10.4) H 01/12/24 03:18 Neut % (Auto) 64.6 % 01/12/24 03:18 Lymph % (Auto) 27.5 % 01/12/24 03:18 [place] % (Auto) 7.0 % 01/12/24 03:18 Eos % (Auto) 0.5 % 01/12/24 03:18 Baso % (Auto) 0.3 % 01/12/24 03:18 Neut # (Auto) 5.54 10^3/uL (1.8-7.7) 01/12/24 03:18 Lymph # (Auto) 2.4 10^3/uL (0.8-4.8) 01/12/24 03:18 [place] # (Auto) 0.6 10^3/uL (0.2-0.9) 01/12/24 03:18 Eos # (Auto) 0.0 10^3/uL (0.0-0.8) 01/12/24 03:18 Baso # (Auto) 0.0 10^3/uL (0.0-0.1) 01/12/24 03:18 Nucleated RBC % (auto) 0 % 01/12/24 03:18 Nucleated RBCs # 0.0 /100WBC 01/12/24 03:18 Sodium 141 mmol/L (136-145) 01/12/24 03:18 Potassium 3.7 mmol/L (3.5-5.1) 01/12/24 03:18 Chloride 106 mmol/L (98-107) 01/12/24 03:18 Carbon Dioxide 25 mmol/L (22-29) 01/12/24 03:18 Anion Gap 13.7 (5-19) 01/12/24 03:18 BUN 13 mg/dL (6-20) 01/12/24 03:18 Creatinine 1.2 mg/dL (0.7-1.2) 01/12/24 03:18 GFR Calculation 69.3 mL/min (90-130) L 01/12/24 03:18 Glucose 108 mg/dL (65-115) 01/12/24 03:18 Calculated Osmolality 293 mOsm/kg (285-295) 01/12/24 03:18 Calcium 8.5 mg/dL (8.5-10.5) 01/12/24 03:18 Magnesium 1.9 mg/dL (1.7-2.3) 01/12/24 03:18 Procedures Performed Laparoscopic sigmoidectomy Sigmoidoscopy Vitals Last Vital Signs Temp 97.6 F 01/12/24 07:29 Pulse 75 01/12/24 07:29 Resp 18 01/12/24 07:29 BP 112/74 01/12/24 07:29 Pulse Ox 97 01/12/24 07:29 O2 Del Method Room Air 01/12/24 07:29 O2 Flow Rate 6 01/10/24 10:48 Discharge Plan Discharge Patient Disposition: Home Condition: Stable Prescriptions: New hydrocodone-acetaminophen 7.5-325 mg tablet 1 tab PO Q6H PRN (Reason: pain) Qty: 20 0RF docusate sodium [Colace] 100 mg capsule 100 mg PO BID Qty: 14 0RF polyethylene glycol 3350 [Miralax] 17 gram/dose powder 17 g PO DAILY Qty: 119 0RF Continued pantoprazole [Protonix] 40 mg tablet,delayed release (DR/EC) 40 mg PO BID 42 Days Qty: 84 1RF erythromycin 500 mg tablet 500 mg PO TID 1 Days Qty: 3 0RF Rx Instructions: Take 1 tablet at 3PM ,4PM,and 10PM day before surgery neomycin 500 mg tablet 500 mg PO ONCE 1 Days Qty: 6 0RF Rx Instructions: Take 2 tabs at 3PM,4PM,and 10PM day before surgery acetaminophen 325 mg Tablet 650 mg PO Q6H PRN (Reason: Mild/Mod Pain Or Temp >/= 101) Qty: 30 0RF Discharge Orders: Discharge Order (Routine); Ordered 01/12/24 Ordered By: Henrique Rob Referrals: Henrique Rob DO [Physician] - 2 weeks Discharge Diet: Advance as tolerated Patient Instructions: Acute Wound Care (DC), Opioid Safety, Post Anesthesia Care Activity Restrictions/Additional Instructions: No lifting, pushing or pulling over 15 pounds for 6 weeks. Do not soak incisions underwater for 2 weeks. Shower daily. Keep incisions covered with breast dry bandage daily until 01/15/2024. Discharge Attestations Time Spent in Discharge Care*: less than 30 min Quality Metrics Clinical Quality Measures [ No reported AMI, CVA or VTE this stay] Coding Level of Care Code Acute Code for [facility] Fwd Diagnoses Diverticulitis of large intestine with complication K57.32
[2024-01-12] MEDS: HYDROcodone-acetaminophen 7.5-325 mg Tablet 1 TAB PO (09:29)
[2024-01-12 11:41] VITALS: BP 108/68; PULSE 72; RESP 17; TEMP 36.7; O2SAT 96
[2024-01-12 12:57] VITALS: BP 108/68; PULSE 72; RESP 17; TEMP 36.7; O2SAT 96
== END 2024-01-12 12:58 | disposition home or self-care (01) | DRG 331 ==
LOC: MEDSURG 01-11 10:07
PROVIDERS: Admitting Provider Surgery; PCP Nurse Practitioner Family; Visit Provider Surgery
PROC: 0DTN4ZZ Resection of Sigmoid Colon, Percutaneous Endoscopic Approach (ICD-10-PCS; CPT 44204; principal; 2024-01-10 07:00)
PROC: 0DJD8ZZ Inspection of Lower Intestinal Tract, Via Natural or Artificial Opening Endoscopic (ICD-10-PCS; CPT 45330; 2024-01-10 07:00)
DX: K57.30 Diverticulosis of large intestine without perforation or abscess without bleeding (principal); D12.5 Benign neoplasm of sigmoid colon; F17.200 Nicotine dependence, unspecified, uncomplicated
CPT/HCPCS: 36415; 51702; 80048; 83735; 85025; 88300; 88309; 96372; J1100; J1170; J1644; J2250; J2371; J2405; J2470; J2543; J2704; J3010; J3490; J7030; J7799

== ENCOUNTER 2025-03-07 01:29 | Emergency (ER) | payer BC, SELFPAY ==
--- OUTSIDE RECORDS SUMMARY | 2025-03-07 01:33 | XMS_ITS | Encounter Summary ---
Author Organization [facility] Address [address] [place] [address] Care Team Providers Care Ingot Car Operator Name Role Phone Evie Salas DO Primary Care Provider [phone] Encounter Details Date Type Department Care Team (Late st Contact Info) Description 03/05/2025 External Device Data [facility] ABSTRACTION Provider, Abstract NO ADDRESS ON FILE Social History Tobacco Use Types Packs/Day Years Used Date Smoking Tobacco: Every Day Cigarettes Smokeless Tobacco: Never Alcohol Use Standard Drinks/Week Comments Never 0 (1 standard drink = 0.6 oz pur e alcohol) Feeling Safe Answer Date Recorded Are you in a relationship wi th someone who hurts you emotionally and/or physically? 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
--- OUTSIDE RECORDS SUMMARY | 2025-03-07 01:33 | XMS_ITS | Clinical Summary ---
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 Name Role Phone Evie Salas Primary Care Provider Allergies No known active allergies Medications No known medications Active Problems Problem Noted Date Diagnosed Date Mixed hyperlipidemia 10/19/2024 Chronic pain of both ankles 10/19/2024 Obesity (BMI 35.0-39.9 without comorbidity) 10/07 Abdominal wall hernia 10/19/2024 History of partial surgical removal of colon 04/2024 History of diverticular abscess of colon 024 Current every day smoker 04/19/2024 Prediabetes 10/19/2023 Resolved Problems Problem Noted Date Diagnosed Date Resolved Date Diverticulitis of colon with perforation 10/05/2023 04/19/2024 COVID-19 virus infection 04/05/2023 Encounters Date Type Department Care Team Description 03/05/2025 External Device Data [facility]STRACTION Provider, Abstract 01/08/2025 External Device Data [facility]STRA[facility] Provider, Abstract 12/25/2024 External Device Data [facility]STRA[facility] Provider, Abstract from Last 3 Months Social History Tobacco Use Types Packs/Day Years Used Date Smoking Tobacco: Every Day Cigarettes Smokeless Tobacco: Never Tobacco Cessation:Ready to Q uit: No; Counseling Given: Yes Alcohol Use Standard Drinks/Week Comments Never 0 (1 standard drink = 0.6 oz pur e alcohol) Feeling Safe Answer Date Recorded Are you in a relationship wi th someone who hurts you emotionally and/or physically? 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 Gender Identity Not on file Sexual Orientation Not on file Last Filed Vital Signs Vital Sign Reading Time Taken Comments Blood Pressure 138/74 10/19/2024 10:17 AM CDT Pulse 98 10/19/2024 10:17 AM CDT Temperature 36.9 C (98.4 F) 10/19/2024 10:17 AM CDT Respiratory Rate 18 10/19/2024 10:17 AM CDT Oxygen Saturation 97% 10/19/2024 10:17 AM CDT Inhaled Oxygen Concentration - - Weight 105 kg (231 lb 6.4 oz) 10/19/2024 10:17 A M CDT Height 170.2 cm (5' 7 ) 10/19/2024 10:17 AM CDT Body Mass Index 36.24 10/19/2024 10:17 AM CDT Plan of Treatment Health Maintenance Due Date Last Done Comments HEPATITIS B VACCINES (3 of 3 - 3-dose series) 05/31/2001 03/15/2001, 02/08/2001 DTAP/TDAP/TD VACCINES (2 - Tdap) 01/14/2005 01/14/20 05 HPV VACCINES (1 - 3-dose SCDM series) 2016 INFLUENZA VACCINE (#1) 2024 07/27/2021 Pre-Diabetes and Diabetes Screening 10/20/2027 10/19/2024, 04/19/2024, 09/22/2023 Preventative Visit- Commercial Completed 10/19/2024 Procedures Procedure Name Priority Date/Time Associated Diagnosis Comments HEMOGLOBIN A1C Routine 10/19/2024 10:40 AM CDT Normal routine physical examination Prediabetes Obesity (BMI 35.0-39.9 without comorbidity) from Last 3 Months or Most Recently Relevant to Health Maintenance Results * (ABNORMAL) HEMOGLOBIN A1C (10/19/2024 10:40 AM CDT) HEMOGLOBIN A1C 5.7(H) <5.7 % [facility] Comment: For someone without known diabetes, a hemoglobin A1c value between 5.7% and 6.4% is consistent with prediabetes and should be confirmed with a follow-up test. For someone with known diabetes, a value <7% indicates that their diabetes is well controlled. A1c targets should be individualized based on duration of diabetes, age, comorbid conditions, and other considerations. This assay result is consistent with an increased risk of diabetes. Currently, no consensus exists regarding use of hemoglobin A1c for diagnosis of diabetes for children. ESTIMATED AVERAGE GLUCOSE (MG/DL) 117 mg/dL [facility] ESTIMATED AVERAGE GLUCOSE (MMOL/L) 6.5 mmol/L [facility] Comment: Test Performed at: [facility] [id number] [place] [address] Alvino Contreras MD Blood 10/19/2024 10:4 0 AM CDT 10/20/2024 4:12 AM CDT Morena Brunner PHOTOENGRAVING SKETCH MAKER CHEMISTRY ORDERABLES Final Result [facility] [phone] [facility] [address] [place] [address] from Last 3 Months or Most Recently Relevant to Health Maintenance Insurance [facility] BLUE ACCESS/TRUE BLUE PPO Care Teams Freelance Makeup Artist Relationship Specialty Start Date End Date Evie Salas DO [address] [place] [id number] PCP - General Family Practice 10/05/23
[2025-03-07 01:35] VITALS: BP 154/83; PULSE 82; RESP 18; TEMP 36.8; O2SAT 96; BMI 36.0
[2025-03-07 01:46] VITALS: BP 154/83; PULSE 84; O2SAT 94
--- NOTE | 2025-03-07 01:59 | CTR_ITS ---
PROCEDURE INFORMATION: Exam: CT Abdomen And Pelvis With Contrast Exam date and time: 03/07/2025 2:38 AM Age: 34 years old Clinical indication: Abdominal pain; Prior surgery; Surgery date: 6+ months; Surgery type: Took a foot out of intestines due to diverticulitis; Additional info: Complex diverticulitis HX, worsening llq pain TECHNIQUE: Imaging protocol: Computed tomography of the abdomen and pelvis with contrast. Radiation optimization: All CT scans at this facility use at least one of these dose optimization techniques: automated exposure control; mA and/or kV adjustment per patient size (includes targeted exams where dose is matched to clinical indication); or iterative reconstruction. Contrast material: OMNI 350; Contrast volume: 100 ml; Contrast route: INTRAVENOUS (IV); COMPARISON: CT abdomen pelvis w con* [id number] 09/22/2023 6:12 PM RADIATION DOSE METRICS: Total DLP (mGy-cm): 1012.23 FINDINGS: Liver: Normal. No mass. Gallbladder and biliary ducts: Normal. No calcified stones. No ductal dilation. Pancreas: Normal. No ductal dilation. Spleen: Normal. No splenomegaly. A splenule is present. Adrenal glands: Normal. No mass. Kidneys and ureters: Normal. No hydronephrosis. Stomach and bowel: The small bowel is normal in course and caliber without evidence of wall thickening or obstruction. Mild circumferential wall thickening of the colon involving ascending, transverse, and descending segments, with mild pericolonic fat stranding is present. No loculated pericolonic fluid collections to suggest abscess or perforation. Postoperative changes from sigmoid resection are noted. No acute complication. Colonic diverticulosis involving the descending colon. Wall thickening as above. Appendix: The appendix is normal. Intraperitoneal space: Unremarkable. No free air. No significant fluid collection. Vasculature: A retroaortic left renal vein is present. Lymph nodes: Unremarkable. No enlarged lymph nodes. Urinary bladder: Unremarkable as visualized. Reproductive: Unremarkable as visualized. Bones/joints: Unremarkable. No acute fracture. Soft tissues: A large, broad-based, fat and bowel containing ventral hernia is present. No evidence of obstruction. A fat containing umbilical hernia is present. CT/CT abdomen pelvis w con* [id number] IMPRESSION: 1. Pancolitis with wall thickening and inflammation involving the right and left hemicolon. No acute complication such as perforation or pericolonic abscess. 2. Additional colonic diverticular disease. Acute diverticulitis could be considered, however is considered less likely given involvement of the right hemicolon.
--- NOTE | 2025-03-07 02:00 | ECG_ITS ---
[facility] 2025-[facility]07 Pat Name: Alonso Duque Department: Room: Gender: Male Remelter: : 1990 Requested By: Vicente Martinez Order Number: [id number] Walker MD: Jose Ahumada M.D. Measurements Intervals [place] Rate: 71 P: 42 ME: 191 QRS: 40 QRSD: 80 T: 20 QT: 343 QTc: 375 Interpretive Statements SINUS RHYTHM NONSPECIFIC T-WAVE ABNORMALITY Compared to ECG 09/24/2023 08:32:54 T-wave abnormality now present Electronically Signed On 03-09-2025 20:37:45 CDT by Jose Ahumada M.D. [email or web address]
[2025-03-07 02:09] LABS: Hematocrit 42.5 % (37-53); Hemoglobin 14.30 g/dL (11.27-16.99); Mean Corpuscular HGB Conc 33.6 g/dL (30-55); Mean Corpuscular Hemoglobin 29.1 pg (27-33); Mean Corpuscular Volume 86.4 fl (82-101); Nucleated Red Blood Cells % 0 %; Platelet Count 168 10^3/cmm (157-399); Red Blood Count 4.92 10^6/uL (3.85-5.65); White Blood Count 6.81 10^3/uL (3.29-11.43)
[2025-03-07 02:13] VITALS: RESP 18; O2SAT 98
[2025-03-07] MEDS: ondansetron 2 mg/ML SDV 2 mL 4 MG IVP (02:13)
[2025-03-07] MEDS: morphine 4 mg/mL SDV 1 mL IVP (02:13)
[2025-03-07 02:15] VITALS: BP 126/74; PULSE 74; O2SAT 98
[2025-03-07 02:19] LABS: Troponin(5th) Baseline 10 ng/L (0-15)
[2025-03-07 02:21] LABS: Alanine Aminotransferase 64 U/L (0-41); Albumin Level 4.7 g/dL (3.5-5.2); Alkaline Phosphatase 100 U/L (40-130); Anion Gap 19.1 (5-19); Aspartate Amino Transferase 43 U/L (0-40); Blood Urea Nitrogen 20 mg/dL (6-20); Calcium 9.6 mg/dL (8.5-10.5); Carbon Dioxide 23 mmol/L (22-29); Chloride 103 mmol/L (98-107); Globulin 2.6 g/dL (1.3-4.6); Glucose 153 mg/dL (65-115); Lipase 62 U/L (13-60); Magnesium 2.1 mg/dL (1.7-2.3); Osmolality Calculated 298 mOsm/kg (285-295); Potassium 4.1 mmol/L (3.5-5.1); Sodium 141 mmol/L (136-145); Total Protein 7.3 g/dL (6.6-8.7)
[2025-03-07 02:30] VITALS: BP 110/70; PULSE 76; O2SAT 92
--- NOTE | 2025-03-07 02:41 | W.ED.ABDPA2 ---
HPI - Abdominal Pain General: Chief Complaint: Abdominal Pain Stated Complaint: Abd pain Time Seen by Provider: 03/07/25 01:39 History of Present Illness: Patient is a 34-year-old male recurrent diverticulitis, GERD, H. pylori PUD who presents to the ED with diffuse lower abdominal pain, worse in the left lower quadrant, felt abruptly constipated and cannot go when he needed to. He had some minor swelling at the site and did not know if it was a hernia. Did not have any vomiting or diarrhea with this. Took Pepto-Bismol for suspected indigestion just prior to arrival. Prior to going to bed tonight, no suspicious food intake, no fevers, chills, diaphoresis, had been feeling well, no recent flulike symptoms. Associated Symptoms: Reports constipation Related Data Previous Rx's ?Medication ?Instructions ?Recorded acetaminophen 325 mg tablet 650 mg (2 x 325 mg) PO Q6H PRN 09/25/23 Mild/Mod Pain Or Temp >/= 101 #30 tabs pantoprazole 40 mg tablet,delayed 40 mg PO BID 6 weeks #84 tabs 10/10/23 release (Protonix) docusate sodium 100 mg capsule 100 mg PO BID #14 caps 01/12/24 (Colace) hydrocodone 7.5 mg-acetaminophen 1 tab PO Q6H PRN pain #20 tabs 01/12/24 325 mg tablet polyethylene glycol 3350 17 17 g PO DAILY #119 grams 01/12/24 gram/dose oral powder (Miralax) oxycodone 5 mg capsule 5 mg PO Q8H PRN pain #10 caps 03/07/25 Allergies Allergy/AdvReac Type Severity Reaction Status Date / Time No Known Allergies Allergy Verified 03/07/25 01:44 Review of Systems General: Reports: 10 or more systems reviewed and unremarkable except in HPI and below GI: Reports: abdominal pain and constipation REPLACED BY [facility] PFSH: Medical History (Updated 03/15/25 @ 00:00 by CARLITO Villar) Tubular adenoma of colon Diverticulitis of large intestine with complication Diverticulitis of colon with perforation No pertinent past medical history Surgical History Status post laparoscopic-assisted sigmoidectomy No pertinent past surgical history Family History Mother CAD (coronary artery disease) Social History Smoking and tobacco/nicotine status: current every day tobacco/nicotine user Alcohol intake: never Substance/Drug Use: current Physical Exam Narrative: EXAM NARRATIVE: Well-appearing, vital signs stable on arrival, afebrile, no acute distress. Abdomen mildly distended, tender diffusely on the left, worse in the left lower quadrant, no CVA tenderness, bowel sounds decreased, not peritonitic, negative Donald and McBurney sign. Breathing comfortably on room air, saturating well, able to speak in full sentences without getting short of breath, no signs of respiratory distress. Normal sinus rhythm with no murmurs, no leg swelling, 2+ pulses throughout, slightly delayed cap refill. GCS 15. Course Vital Signs: Vital signs: Vital Signs Temperature 98.2 F 03/07/25 01:35 Pulse Rate 86 03/07/25 03:00 Respiratory Rate 18 03/07/25 02:13 Blood Pressure 127/73 03/07/25 03:00 Pulse Oximetry 92 03/07/25 03:00 Oxygen Delivery Me thod Room Air 03/07/25 03:00 MDM - Abdominal Pain Medical Decision Making -ddx: Diverticulitis, abscess, perforation, gastritis, PUD, pancreatitis, cholecystitis, cystitis, dehydration, electrolyte abnormality, foodborne illness - Patient relatively healthy, with abrupt onset of abdominal pain, constipation, has complex GI/abdominal history, will get abdominal labs, CT abdomen pelvis, provide fluids, nausea and pain medication and reassess. - Patient's laboratory studies ultimately fairly reassuring with no systemic signs of infection or inflammation, no blood cell line abnormalities, no HENRY, mild LFT elevation, no severe electrolyte abnormality. CT scan with concerns of a diffuse pancolitis but importantly no systemic complication from this, no abscess formation, no microperforation, no obstruction with his constipation. Patient felt markedly improved with the above symptomatic medications, was able to p.o. challenge successfully and with his constipation and a pancolitis he was discharged with Zofran and oxycodone as needed, advised to start with a bland diet and advance as tolerated, work note provided, advised to follow-up with PCP in a few days to reevaluate the status of his infection, discharged in stable condition, strict return precautions given. Lab Data 03/07/25 01:40 03/07/25 01:40 Labs/Radiology: Radiology Impressions Abdomen/Pelvis CT 03/07/25 01:59 IMPRESSION: 1. Pancolitis with wall thickening and inflammation involving the right and left hemicolon. No acute complication such as perforation or pericolonic abscess. 2. Additional colonic diverticular disease. Acute diverticulitis could be considered, however is considered less likely given involvement of the right hemicolon. Laboratory Results WBC 6.81 10^3/uL (3.29-11.43) 03/07/25 01:40 RBC 4.92 10^6/uL (3.85-5.65) 03/07/25 01:40 Hgb 14.30 g/dL (11.27-16.99) 03/07/25 01:40 Hct 42.5 % (37-53) 03/07/25 01:40 MCV 86.4 fl (82-101) 03/07/25 01:40 MCH 29.1 pg (27-33) 03/07/25 01:40 MCHC 33.6 g/dL (30-55) 03/07/25 01:40 RDW 13.3 % (12.1-15.1) 03/07/25 01:40 Plt Count 168 10^3/cmm (157-399) 03/07/25 01:40 MPV 12.5 fL (7.4-10.4) H 03/07/25 01:40 Neut % (Auto) 70.0 % 03/07/25 01:40 Lymph % (Auto) 20.9 % 03/07/25 01:40 [place] % (Auto) 6.9 % 03/07/25 01:40 Eos % (Auto) 1.3 % 03/07/25 01:40 Baso % (Auto) 0.6 % 03/07/25 01:40 Neut # (Auto) 4.77 10^3/uL (1.8-7.7) 03/07/25 01:40 Lymph # (Auto) 1.4 10^3/uL (0.8-4.8) 03/07/25 01:40 [place] # (Auto) 0.5 10^3/uL (0.2-0.9) 03/07/25 01:40 Eos # (Auto) 0.1 10^3/uL (0.0-0.8) 03/07/25 01:40 Baso # (Auto) 0.0 10^3/uL (0.0-0.1) 03/07/25 01:40 Nucleated RBC % (auto) 0 % 03/07/25 01:40 Nucleated RBCs # 0.0 /100WBC 03/07/25 01:40 Sodium 141 mmol/L (136-145) 03/07/25 01:40 Potassium 4.1 mmol/L (3.5-5.1) 03/07/25 01:40 Chloride 103 mmol/L (98-107) 03/07/25 01:40 Carbon Dioxide 23 mmol/L (22-29) 03/07/25 01:40 Anion Gap 19.1 (5-19) H 03/07/25 01:40 BUN 20 mg/dL (6-20) 03/07/25 01:40 Creatinine 1.1 mg/dL (0.7-1.2) 03/07/25 01:40 GFR Calculation 76.2 mL/min (90-130) L 03/07/25 01:40 Glucose 153 mg/dL (65-115) H 03/07/25 01:40 Calculated Osmolality 298 mOsm/kg (285-295) H 03/07/25 01:40 Calcium 9.6 mg/dL (8.5-10.5) 03/07/25 01:40 Phosphorus 3.1 mg/dL (2.5-4.5) 03/07/25 01:40 Magnesium 2.1 mg/dL (1.7-2.3) 03/07/25 01:40 Total Bilirubin 0.4 mg/dL (0.15-1.2) 03/07/25 01:40 AST 43 U/L (0-40) H 03/07/25 01:40 ALT 64 U/L (0-41) H 03/07/25 01:40 Alkaline Phosphatase 100 U/L (40-130) 03/07/25 01:40 Troponin T Baseline 10 ng/L (0-15) 03/07/25 01:40 Troponin T 120 Minute 9.07 ng/L (0-15) 03/07/25 03:52 Delta Troponin T -0.93 ABS# (0-10) L 03/07/25 03:52 C-Reactive Protein 19.4 mg/L (0.0-4.9) H 03/07/25 01:40 Total Protein 7.3 g/dL (6.6-8.7) 03/07/25 01:40 Albumin 4.7 g/dL (3.5-5.2) 03/07/25 01:40 Globulin 2.6 g/dL (1.3-4.6) 03/07/25 01:40 Lipase 62 U/L (13-60) H 03/07/25 01:40 Urine Color Yellow (Yellow) 03/07/25 02:36 Urine Appearance Clear (CLEAR) 03/07/25 02:36 Urine pH 6.5 (5-7) 03/07/25 02:36 Ur Specific [place] 1.033 (1.005-1.030) H 03/07/25 02:36 Urine Protein Trace (Negative) A 03/07/25 02:36 Urine Glucose (UA) Negative (Normal) 03/07/25 02:36 Urine Ketones Trace (Negative) 03/07/25 02:36 Urine Blood Negative (Negative) 03/07/25 02:36 Urine Nitrate Negative (Negative) 03/07/25 02:36 Urine Bilirubin Negative (Negative) 03/07/25 02:36 Urine Urobilinogen 1.0 mg/dL (Negative) 03/07/25 02:36 Ur Leukocyte Esterase Negative (Negative) 03/07/25 02:36 Urine RBC 0-2 /hpf (0-2) 03/07/25 02:36 Urine WBC 0-5 /hpf (0-5) 03/07/25 02:36 Ur Squamous Epith Cells 0-5 /hpf (0-5) 03/07/25 02:36 Amorphous Sediment Not Reportable 03/07/25 02:36 Urine Bacteria None seen /hpf (NONE) 03/07/25 02:36 Hyaline Casts 0.40 /lpf 03/07/25 02:36 All radiology interpretation(s) finalized by discharge Discharge Plan Discharge Patient Disposition: Home Clinical Impression: Pancolitis Condition: Stable Prescriptions: New oxycodone 5 mg capsule 5 mg PO Q8H MDD 15 mg PRN (Reason: pain) Qty: 10 0RF No Action pantoprazole [Protonix] 40 mg tablet,delayed release (DR/EC) 40 mg PO BID 42 Days Qty: 84 1RF acetaminophen 325 mg Tablet 650 mg PO Q6H PRN (Reason: Mild/Mod Pain Or Temp >/= 101) Qty: 30 0RF hydrocodone-acetaminophen 7.5-325 mg tablet 1 tab PO Q6H PRN (Reason: pain) Qty: 20 0RF Colace 100 mg capsule 100 mg PO BID Qty: 14 0RF Miralax 17 gram/dose powder 17 g PO DAILY Qty: 119 0RF Discharge Orders: Discharge ED (Routine); Ordered 03/07/25 Ordered By: Vicente Martinez Referrals: Morena Brunner FNP [Primary Care Provider] Discharge Diet: Advance as tolerated Patient Instructions: Abdominal Pain (ED), Infectious Colitis (ED), Opioid Safety, Pain Management, Patient Portal & Albert Instructions Activity Restrictions/Additional Instructions: You were seen for your abdominal pain, you were evaluated with labs and a CT scan which was ultimately reassuring for no emergent conditions but you were found to have a pancolitis which is inflammation of most of your large intestine. No antibiotics are needed for this and because you improved with fluids and medication you are able to be discharged home. You are able to resume work as normal. To help improve and heal, start with a bland diet including crackers, toast and clear liquids and advance as your stomach allows. Use Zofran, 4 mg every 8 hours as needed for nausea. For the pain, alternate Tylenol 650 mg and ibuprofen 4 mg every 4 hours as needed, use oxycodone 5 mg for breakthrough pain on top of this, do not drive or operate heavy machinery with this medication as it can be sedating. Make a follow-up appointment with your primary care physician in a week to ensure you are improving. Return to the ED with severe worsening of the pain, inability to eat or drink, fevers, any other emergent concerns. 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
[2025-03-07] MEDS: iohexol 350 mg/mL 500 mL Btl (per mL) IV (02:45)
[2025-03-07 03:00] VITALS: BP 127/73; PULSE 86; O2SAT 92
[2025-03-07 03:08] LABS: Glucose Urine UA Negative (Normal); Nitrate Urine Negative (Negative)
[2025-03-07 03:13] LABS: Add Urine Microscopic? YES
[2025-03-07 03:17] LABS: Specific Gravity, Urine 1.033 (1.005-1.030)
[2025-03-07 04:28] LABS: Troponin 5 2HR 9.07 ng/L (0-15)
[2025-03-07 04:29] LABS: Troponin 5 2HR Delta -0.93 ABS# (0-10)
== END 2025-03-07 05:30 | disposition home or self-care (01) ==
PROVIDERS: Emergency Provider Student in an Organized Health Care Education/Training Program; PCP Nurse Practitioner Family
DX: K52.9 Noninfective gastroenteritis and colitis, unspecified (principal); Z72.0 Tobacco use
CPT/HCPCS: 36415; 74177; 80053; 81001; 83690; 83735; 84100; 84484; 85025; 86140; 93005; 96361; 96374; 96375; 99285; J2270; J2405; J7030